=== PATIENT | female | born 2005 | race Caucasian/White ===

== ENCOUNTER 2025-09-05 13:12 | Inpatient (IN) | payer BC, SELFPAY ==
--- OUTSIDE RECORDS SUMMARY | 2025-09-01 11:41 | XMS_ITS | Encounter Summary ---
Author Organization Address [id number] [place] [id number] Care Team Providers Care Wastewater Engineer Name Role Phone Kev Canales MD Primary Care Provider [phone] Reason for Visit * Reason Comments Suicidal Suicide Attempt * Auth/Cert (Routine) Specialty Diagnoses / Procedures Referred By Naty zimmerman Referred To Contact Diagnoses Suicidal ideation Ingestion of toxic substance Procedures . Oliva Puri MD [address] [place] [phone] Phone: tel: fax: [facility] ICU [address] [place] [phone] Phone: tel: Referral ID Status Reason Start Date Expiration Date Visits Re quested Visits Authorized [id number] 1 1 Encounter Details Date Type Department Care Team (Latest Contact Info) Description 09/01/2025 12:41 PM EDT - 09/05/2025 12:55 PM EST Hospital Encounter [facility] Medical Surgical Unit [address] [place] [phone] Jose Brizuela MD [address] [place] [phone] Oliva Puri MD [address] [place] [phone] Cindy Marie MD [address] [place] [phone] Addie Henderson MD [address] [place] [phone] Ingestion of toxic substance (Primary Dx); Suicidal ideation Discharge Disposition: Psychiatric Hospital Social History Tobacco Use Types Packs/Day Years Used Date Smoking Tobacco: Never Smokeless Tobacco: Never Tobacco Cessation:Counseling Given: Not Answered Housing Instability Answer Date Recorde d Are you worried that in the next 2 months you may not have stable housing? No 09/01/2025 Food Access & Nutrition Answer Date Rec orded Do you have access to a vari ety of food including fruits and vegetables? Yes 09/01/2025 Access to Healthcare Answer Date Record ed Within the last 3 months, ho w many times did you visit the emergency department for your medical care? 1 09/01/2025 Financial Risk Answer Date Recorded How hard is it for you to pa y for the very basics like food, housing, medical care, and air conditioning / heating? Not very hard 09/01/2025 Transportation Answer Date Recorded Has the lack of transportati on kept you from meetings, work, or from getting things needed for daily living? No Has the lack of transportati on kept you from medical appointments or from getting medications? No 09/01/2025 Social Isolation Answer Date Recorded How often do you feel lonely or isolated from th ose around you? Often 09/01/2025 Food Risk Answer Date Recorded Within the past 12 months we worried whether our food would run out before we got money to buy more. Never true 09/01/2025 Within the past 12 months th e food we bought just didn't last and we didn't have money to get more. Never true 09/01/2025 Dependent Care Answer Date Recorded Do you need help finding or paying for care for your loved ones. For example, child specialist or elderly care for an older adult? No 09/01/2025 Education Answer Date Recorded Do you think completing more education or training, like finishing a GED, going to college, or learning a trade, would be helpful for you? No 09/01/2025 Employment and Income Answer Date Recor ded During the last four weeks, have you been actively looking for work? No 09/01/2025 Living Situation Answer Date Recorded What is your living situation? Unrecognized valu e 09/01/2025 Interpersonal Safety Answer Date Record ed Physical Abuse Unrecognized value 09/01/2025 Verbal Abuse Unrecognized value 09/01/2025 Comments Unknown Sex and Gender Information Value Date Recorded Sex Assigned at Not on file Legal Sex Female 12:35 PM EDT Gender Identity Not on file Sexual Orientation Not on file documented as of this encounter Last Filed Vital Signs Vital Sign Reading Time Taken Comments Blood Pressure 110/79 09/05/2025 11:54 AM EST Pulse 101 09/05/2025 11:54 AM EST Temperature 37.1 C (98.8 F) 09/05/2025 11:54 AM EST Respiratory Rate 18 09/05/2025 11:54 AM EST Oxygen Saturation 98% 09/05/2025 11:54 AM EST Inhaled Oxygen Concentration - - Weight 69.4 kg (153 lb) 09/01/2025 12:39 PM EDT Height 157.5 cm (5' 2 ) 09/01/2025 12:39 PM EDT Body Mass Index 27.98 09/01/2025 12:39 PM EDT documented in this encounter Functional Status * Calculated C-SSRS Risk Score (Lifetime/Recent) Answer Date of Assessment Author High Risk 09/01/2025 2:01 PM EDT Cortes RN * [place] Suicide Severity Rating Scale (Screener/Recent Self-Report) Question Answer Date of Assessment Author 1. Wish to be (Past 1 Month) No 025 2:01 PM EDT Xiao Madera RN 2. Non-Specific Active Suici pako Thoughts (Past 1 Month) Yes 09/01/2025 2:01 PM EDT Xiao Madera RN 3. Active Suicidal Ideation with any Methods (Not Plan) Without Intent to Act (Past 1 Month) Yes 09/01/2025 2:01 PM EDT Xiao Madera RN 4. Active Suicidal Ideation with Some Intent to Act, Without Specific Plan (Past 1 Month) Yes 09/01/2025 2:01 PM EDT Xiao Madera RN 5. Active Suicidal Ideation with Specific Plan and Intent (Past 1 Month) Yes 09/01/2025 2:01 PM EDT Xiao Madera RN 6. Suicidal Behavior (Lifetime) Yes 2:01 PM EDT Xiao Madera RN 6. Suicidal Behavior (3 Months) Yes 2:01 PM EDT Xiao Madera RN documented as of this encounter Discharge Summaries * Addie Henderson MD - 09/05/2025 11:26 AM EST Images from the original note were not included. [facility] DISCHARGE SUMMARY Patient Information Kimi Sarah : 2005 [19 y.o.] Admitting Provider Oliva Puri MD Discharge Provider Addie Henderson MD, Addie Henderson MD Primary Care Physician Kev Canales MD Admission Date 09/01/2025 Discharge Date 09/05/2025 Summary of Hospital Problems Chief Complaint Patient presents with Suicidal Suicide Attempt Primary Discharge Diagnosis: Mood disorder (CMS/[facility] V24) Suicide attempt Polysubstance overdose Hypomagnesemia Discharge Destination: Psych hospital Code Status at Discharge: Full Code - Default Inpatient Consultants: Psychiatry ICU Procedures Performed Discharge Medications Medication List TAKE these medications FLUoxetine 20 mg capsule Commonly known as: PROzac Take 1 capsule (20 mg total) by mouth 1 (one) time each day. Start taking on: September 06, 2025 Hospital Course Summary History Of Present Illness (include Chief Complaint) ED provider HPI ( Dr Goebel. HARRIS)Kimi Sarah is a 19 y.o. female presenting with toxic ingestion suicide attempt. Approximately 1 hour prior to ED arrival and a suicidal gesture the patient tooka total of clonidine 0.1 mg x 8, hydroxyzine 25 mg x 8, and Lexapro 5 mg times unknown number. She said that the gesture was impulsive and that she immediately grabbed it so called her mom. Mom called 911 and accompanies the patient to the ED. Upon arrival in the ED she states that she is very sleepy and barely can keep her eyes open. Patient hypotensive in ED requiring vasopressor support with stable airway. CCM is called to assess patient for ICU admission and CCM management. HCG negative. Afebrile. VS acceptable on norepinephrine 0.05 mcg/kg/min Qtc 484, 480 Hospital course 89-year-old female with past medical history significant for depression and anxiety admitted to theintensive care unit on 09/01/2025 for polysubstance overdose including clonidine hydroxyzine and Lexapro. Initially when she came in she was lethargic and hypotensive. She was given multiple fluid boluses and was started on pressors. She was seen promptly by psychiatry the recommendation was to have active suicidality which will require that she be hospitalized. Patient was taken off pressors on 09/03/2025. She remained stable after that. Her MAP has been greater than 70. She is awake and alert and perfusing well. She was seen by psychiatry and discontinued her clonidine and Lexapro and started on Prozac 20 mg daily. She did have some hypomagnesemia on admission which was repleted. She is medically stable. She will be discharged to the [facility]. Physical Exam at time of Discharge BP 109/71 (BP Location: Left arm, Patient Position: Lying) Pulse 86 Temp 36.6 ??C (97.8 ??F) (Temporal) Resp 16 Ht 1.575 m (62 ) Wt 69.4 kg (153 lb) BMI 27.98 kg/m?? Physical Exam Gen: Alert , oriented Neck Supple Chest : CTA CVS S1 S2 RRR Abdomen Soft NT ND Extremities PP+ Neuro Intact Labs/Imaging XR Chest 1 View Result Date: 09/02/2025 EXAMINATION: CHEST CLINICAL INFORMATION: Evaluate tube and catheters. PICC line placement COMPARISON: None. TECHNIQUE: Portable frontal sitting view of the chest FINDINGS: Devices overlie the patient. There is slight rotation to the right. The right PICC tip projects in the expected region of the right atrium. No mediastinal widening. The cardiac size, karen, vasculature, lungs and visualized pleural margins are within normal limits. No suspicious focal bony lesion. Right PICC tip projects in expected region of right atrium. No pneumothorax. -------- FINAL REPORT -------- Dictated By: Claude Gudino Dictated Date: 09/02/2025 07:09 ET Assigned Physician: Claude Gudino Reviewed and Electronically Signed By: Claude Gudino Signed Date: 09/02/2025 07:10 ET W orkstation ID: [id number] Transcribed By: Self Edit Transcribed Date: 09/02/2025 07:09 ET No results found for: INR , PROTIME Lab Results Component Value Date NA 137 09/04/2025 K 3.9 09/04/2025 CL 107 09/04/2025 CO2 26 09/04/2025 GLUCOSE 115 (H) 09/04/2025 BUN 5 09/04/2025 CREATININE 0.54 09/04/2025 CALCIUM 9.3 09/04/2025 PROT 6.7 09/03/2025 ALBUMIN 3.7 09/03/2025 BILITOT 0.6 09/03/2025 AST 9 (L) 09/03/2025 ALT 25 09/03/2025 PHOS 3.9 09/04/2025 MG 1.8 (L) 09/04/2025 ALKPHOS 78 09/03/2025 EGFR 136 09/04/2025 Lab Results Component Value Date WBC 10.9 (H) 09/04/2025 HGB 12.1 09/04/2025 HCT 36.4 09/04/2025 MCV 93.3 09/04/2025 PLT 249 09/04/2025 No results found for this or any previous visit (from the past week). * Cannot find OR log * Imaging: XR Chest 1 View Narrative: EXAMINATION: CHEST CLINICAL INFORMATION: Evaluate tube and catheters. PICC line placement COMPARISON: None. TECHNIQUE: Portable frontal sitting view of the chest FINDINGS: Devices overlie the patient. There is slight rotation to the right. The right PICC tip projects in the expected region of the right atrium. No mediastinal widening. The cardiac size, karen, vasculature, lungs and visualized pleural margins are within normal limits. No suspicious focal bony lesion. Impression: Right PICC tip projects in expected region of right atrium. No pneumothorax. -------- FINAL REPORT -------- Dictated By: Claude Gudino Dictated Date: 09/02/2025 07:09 ET Assigned Physician: Claude Gudino Reviewed and Electronically Signed By: Claude Gudino Signed Date: 09/02/2025 07:10 ET Workstation ID: [id number] Transcribed By: Self Edit Transcribed Date: 09/02/2025 07:09 ET Follow-Up Instructions and Recommendations No follow-up provider specified. More than 30 minutes spent on the discharge summary. documented in this encounter Medications at Time of Discharge FLUoxetine (PROzac) 20 mg capsule Take 1 capsule (20 mg total) by mouth 1 (one) time each day. 09/06/2025 09/06/2026 documented as of this encounter Ordered Prescriptions Prescription Sig Dispense Quantity Refills Last Filled Start Date End Date FLUoxetine (PROzac) 20 mg capsule Take 1 capsule (20 mg total) by mouth 1 (one) time each day. 09/06/2025 documented in this encounter Discharge Disposition Disposition Code Departure Means Destination Comment [facility] documented in this encounter Progress Notes * Soraya Ochoa RN - 09/05/2025 12:28 PM EST This RN gave nurse to nurse report to [facility] from [facility] at 12:25pm. IV removed from patient. Belongings taken home with patients mother. * Diana Escamilla LCSW - 09/05/2025 10:48 AM EST Patient has been accepted to [facility], by Dr. Jose Garcia, they are requesting and ETA of 1pm. There was a section 12 already placed in her chart for transport. * Lindsey Abbott MD - 09/05/2025 8:47 AM EST Connected to patient's room via I-pad with help from technician anatomic pathology; assistance much appreciated. Patient consented verbally to visit via Telehealth video conferencing modality. Patient educated asto likely differences between Telehealth care and face to face care. Patient informed of the risks and benefits of using Telehealth services and procedures and likely risks and benefits of using alternatives to Telehealth services. Patient informed of the right to refuse Telehealth services at any time without jeopardizing his/her right to future care, services or benefits. Patient was informed that he/she is being seen solely by Lindsey Abbott MD today via secure audio/visual connection in alocked virtual exam room. Persons present on patient's end: Patient, sitter Persons present on provider's end in [place]: Lindsey Abbott MD CHART REVIEWED, PATIENT INTERVIEWED. CHIEF COMPLAINT: Suicide attempt Time spent on encounter: 10 min (5 min face to face, 5 min in chart review and documentation) Billing: JARAD HISTORY OF PRESENT ILLNESS Kimi Sarah is a 19 y.o. female with psychiatric history significant for depression and no known medical history who was admitted following a suicide attempt. Psychiatry was consulted for safety evaluation. The patient states that she is doing well and denies any acute complaints. She feels that her mood is stable. She is tolerating the start of the Prozac without any difficulties, and she desires to continue to take it. She continues to regret her suicide attempt. The patient denies any suicidal ideations, plan, or intent. REVIEW OF SYSTEMS CONSTITUTIONAL: The patient denies fevers, chills, sweats and body ache. HEENT: Denies BECERRA, blurry vision, eye pain, tinnitus, vertigo, gingival bleeding, sore throat, neck or thyroid masses. RESPIRATORY: Denies cough, sputum, hemoptysis. CARDIAC: Denies chest pain, pressure, palpitations, irregular heartbeats. Denies lower extremity edema. GASTROINTESTINAL: Denies abdominal pain, changes in bowel habits or any bleeding on toilet paper. GENITOURINARY: Denies dysuria, hematuria, nocturia or frequency. NEUROLOGIC: Denies headaches, dizziness, syncope. MUSCULOSKELETAL: Negative for arthritis. Denies muscle weakness. No limitation in range of motion. VASCULAR: Denies claudication and cramping. ENDOCRINOLOGY: Denies heat or cold intolerance. HEMATOLOGY: Denies easy bleeding or blood transfusion. DERMATOLOGY: Denies changes in moles or pigmentation changes. Psychiatric ROS: Depression: See HPI. Giovanna: The patient denies elevated/expansive mood, decreased need for sleep, grandiosity, pressuredspeech, flight of ideas, distractibility, increase in goal directed activity, and hypersexuality. Psychosis: The patient denies audio or visual hallucinations, delusions, thought broadcasting, thought insertion, delusions of reference, catatonia, or disorganized speech or behavior. Anxiety: The patient denies any excessive worry, restlessness, fatigue, poor concentration, irritability, muscle tension, or anxiety-related sleep changes. Panic: The patient denies any recent panic episodes. PTSD: The patient does not endorse any current s/s related to PTSD. OCD: The patient denies intrusive thoughts, repetitive behaviors, counting, checking, washing, symmetry, or grouping and ordering that take up more than 1 hour of the day. Eating Disorder: The patient denies feeling overweight, excessive dieting or exercise to lose weight, overuse of laxatives, binging/purging behaviors, and amenorrhea. MEDICAL HISTORY Non-psychiatric medical history: Medical History[1] Current medications: MEDSSCHEDULED[2] ALLERGIES: Current Allergies[3] MSE: Appearance: AOx4. Appears stated age, well groomed. Pleasant and cooperative. Adequate eye contact.No psychomotor agitation or retardation. No evidence of EPS. Muscle tone/station: WNL. Orientation: To person, place, time, and situation. Attention and Concentration: No deficits in attention and concentration. Speech: Normal rate, rhythm, volume, and tone. Mood: Okay. Affect: Dysphoric with restricted range, mood congruent. No lability noted. Thought Process: Coherent, linear, logical, and goal-directed. No FOI or GAYATHRI. No thought blocking. Thought Content: Denies suicidal/homicidal ideation. Denies auditory/visual hallucinations. No delusions. No paranoia. Perception/associations: Denies hallucinations, somatic complaints, or tactile disturbances Suicidal Ideations: Pt denies SI, intent, or plan. Low acute risk. Currently is future oriented, motivated for treatment, and compliant with medications. Homicidal Ideations: Pt denies HI, intent, or plan. Low acute risk. No history of violence. No access to firearms. Behavior: No abnormal behavior during interview. Fund of Knowledge: Appropriate for age and level of education Intellect/Memory: Estimated as average based on interview. Immediate, recent, and remote memory is grossly intact. Language: No deficits Judgment/Insight: fair at present. Musculoskeletal Exam: Movement: [x]normal []abnormal [-]dyskinesias [-]tremors [-]tics Station: [x]upright []hyperflexed/stooped []hyperextended Muscle strength [x]appears normal [-]appears abnormal Muscle tone: [x]normal [-]muscle rigidity LABS: Lab Results Component Value Date WBC 10.9 (H) 09/04/2025 HGB 12.1 09/04/2025 HCT 36.4 09/04/2025 PLT 249 09/04/2025 ALT 25 09/03/2025 AST 9 (L) 09/03/2025 NA 137 09/04/2025 K 3.9 09/04/2025 CL 107 09/04/2025 CREATININE 0.54 09/04/2025 BUN 5 09/04/2025 CO2 26 09/04/2025 VITALS: BP: 109/71 (09/05 748) Heart Rate: 86 (09/05 748) Temp: 36.6 ??C (97.8 ??F) (09/05 748) Temp Source: Temporal (09/05 748) SpO2: 100 % (09/05 748) ASSESSMENT: Kimi Sarah is a 19 y.o. female with psychiatric history significant for depression and no known medical history who was admitted following a suicide attempt. Psychiatry was consulted for safety evaluation. DSM-5 DIAGNOSIS: Suicide attempt MDD, recurrent, severe, without psychotic features Admitted following a suicide attempt. TREATMENT PLAN: Pt has verbalized understanding and given consent/agreement with medications and plan offered. LEVEL OF CARE: Continue current level of treatment. RECOMMENDATIONS: Continue Prozac 20 mg PO daily for depression. Discussed/Reviewed mechanism of action of SSRIs, expected benefits and time to response, common SEs including GI, BECERRA, drowsiness or activation, sexual SEs, and more rare but serious adverse effects including agitation, giovanna, suicidal thoughts and behaviors. The patient meets criteria for Section 12 and cannot leave the hospital AMA. Continue sitter for safety. Per chart review, the patient has now been medically cleared. The disaster recovery specialist team is aware and will evaluate the patient for possible transfer to a psychiatric unit. Medication Education: Risks, benefits, alternatives, and potential side effects were discussed withthe patient. Patient voiced understanding and agreed with medication regimen described above. LABS: Reviewed and discussed most recent labs results. MEDICATION CONTRACT: Patient agreed to take medication only as prescribed and acknowledges that services may be terminated if prescription abuse is observed. SAFETY PLAN: Patient is to alert team if symptoms worsen. Team will monitor for development of suicidal ideations or an acute medication reaction. - Call 911 or present to nearest Emergency Room in case of crisis / suicidal thoughts upon discharge. EDUCATION/CONSENT: Discussed and explained all diagnoses including differential diagnosis and treatment options. Discussed risks, benefits, potential side effects, contraindications, potential drug-drug interactions, alternatives to current medications and medication allergies as noted above. Discussed continuing to monitor for side effects and treatment efficacy prospectively and delineated patient's involvement and responsibility in monitoring for side effects and efficacy. Jorge jamil expressed understanding of these recommendations. BARRIERS TO LEARNING: Patient demonstrates a readiness to learn. Patient verbalizes understanding and agrees to plan. No barriers to communication noted. MEDICATION RECONCILIATION: Medications were reviewed and reconciled with the patient. PREVENTATIVE RECOMMENDATIONS: Preventative Health Education Counseling: discussed proper diet/nutrition, exercise, and sleep hygiene. The patient was encouraged to avoid nicotine, alcohol and illicitdrugs at all times. The patient was made aware that records from the u/s can be sent to his/her PCP at any time that he/she requests. [1] History reviewed. No pertinent past medical history. [2] enoxaparin, 40 mg, subcutaneous, q24h LISETTE FLUoxetine, 20 mg, oral, Daily magnesium oxide, 200 mg, oral, Daily midodrine, 5 mg, oral, TID AC pantoprazole, 40 mg, intravenous, q24h [3] Allergies Allergen Reactions Lactose Pt. Stated she is lactose intolerance * Leda Tomlinson RN - 09/04/2025 2:20 PM EST Patient come from ICU. Patient changed out of tie gown and pants into appropriate attire. Plastic trash bags traded out for paper bags. Asked parent to remove belonging from room and bring them home.Phone removed from room. * TREVOR Benites - 09/04/2025 9:50 AM EST Per record, patient seen by psychiatry and awaiting inpatient psychiatric section 12 transfer. Patient awaits downgraded from ICU. Social Work to follow as needed. * Cindy Marie MD - 09/04/2025 9:26 AM EST Follow up time (mins): 40 Critical care time (mins) : Please see the admission H&P for details regarding the patient's past medical history and initial presentation. This is a 19-year-old female who took an intentional polysubstance overdose with clonidine hydroxyzine and Lexapro. In the emergency department she was sleepy but protecting her airway. She was hypotensive and had a slightly elevated QT interval and was placed on Levophed for support. Her blood pressure trended toward low and she received fluid boluses and midodrine. But continuedwith relatively low blood pressures. She was seen promptly by psychiatry. Their recommendation is the patient continues to have active suicidality which will require that she be hospitalized. She has a one-to-one sitter which cannot bediscontinued. The patient herself has been cooperative and has been off pressors for 24 hours. She is on midodrine but has not not had really good response to it. Her MAP is greater than 70 she is awake and alert and perfusing and given her young age I think this blood pressure is appropriate Today she is without any specific medical complaints and is medically cleared to be transferred to a psychiatric facility. She was seen in follow-up today by psych and they have recommended she beginProzac 20 mg daily which I will order Physical Exam: Temp is 98 pulse is 83 respirate is 17 blood pressure is 99/65 sats 99% on room air Lungs are clear Cardiac's S1-S2 Abdomen is soft Extremities have no edema The patient is awake alert cooperative has had all her questions asked and answered. Data: Reviewed nontoxic Lovenox magnesium midodrine Protonix Medication: Problem List: Suicidal ideation Hypotension likely not pathologic On one-to-one observation Plan: 1 medically clear for transfer to the floor Ambulate One-to-one sitter Begin Prozac per psychiatry Await psychiatric bed availability Continue regular diet not on subcu heparin patient is normally mobile regular activity Continue support Patient's parents are involved in her care. The patient is aware that she is awaiting transfer to an inpatient bed 2 3 4 5 6 Recent Results (from the past 24 hours) Basic metabolic panel Collection Time: 09/03/25 12:36 PM Result Value Ref Range Sodium 139 133 - 145 mmol/L Potassium 4.0 3.5 - 5.5 mmol/L Chloride 108 96 - 110 mmol/L CO2 27 21 - 32 mmol/L Anion Gap 4 3 - 11 Glucose 100 70 - 100 mg/dL BUN 8 5 - 25 mg/dL Creatinine 0.62 0.50 - 1.10 mg/dL eGFR 132 >=60 mL/min/1.73m2 BUN/Creatinine Ratio 12.9 Calcium 9.4 8.5 - 10.5 mg/dL Magnesium Collection Time: 09/03/25 12:36 PM Result Value Ref Range Magnesium 2.1 1.9 - 2.6 mg/dL Phosphorus Collection Time: 09/03/25 12:36 PM Result Value Ref Range Phosphorus 3.1 2.5 - 4.5 mg/dL Lavender tube Collection Time: 09/03/25 12:36 PM Result Value Ref Range Extra Tube Hold for add-ons. POCT Glucose, blood Collection Time: 09/03/25 4:38 PM Result Value Ref Range Glucose POCT 95 70 - 100 mg/dL POCT Glucose, blood Collection Time: 09/03/25 11:06 PM Result Value Ref Range Glucose POCT 131 (H) 70 - 100 mg/dL Calcium, ionized Collection Time: 09/04/25 4:09 AM Result Value Ref Range Calcium Ionized 4.90 4.50 - 5.30 mg/dL Magnesium Collection Time: 09/04/25 4:09 AM Result Value Ref Range Magnesium 1.8 (L) 1.9 - 2.6 mg/dL Phosphorus Collection Time: 09/04/25 4:09 AM Result Value Ref Range Phosphorus 3.9 2.5 - 4.5 mg/dL Basic metabolic panel Collection Time: 09/04/25 4:09 AM Result Value Ref Range Sodium 137 133 - 145 mmol/L Potassium 3.9 3.5 - 5.5 mmol/L Chloride 107 96 - 110 mmol/L CO2 26 21 - 32 mmol/L Anion Gap 4 3 - 11 Glucose 115 (H) 70 - 100 mg/dL BUN 5 5 - 25 mg/dL Creatinine 0.54 0.50 - 1.10 mg/dL eGFR 136 >=60 mL/min/1.73m2 BUN/Creatinine Ratio 9.3 Calcium 9.3 8.5 - 10.5 mg/dL CBC auto differential Collection Time: 09/04/25 4:09 AM Result Value Ref Range WBC 10.9 (H) 4.8 - 10.8 K/mcL RBC 3.90 3.80 - 4.80 M/mcL Hemoglobin 12.1 11.5 - 16.0 g/dL Hematocrit 36.4 35.0 - 47.0 % MCV 93.3 79.0 - 98.0 FL MCH 31.0 27.0 - 32.0 pcg MCHC 33.2 32.0 - 37.0 g/dL RDW 12.0 11.0 - 15.0 % Platelets 249 130 - 400 K/mcL MPV 9.1 7.0 - 11.0 FL NRBC 0.0 <1.0 % NRBC Absolute 0.00 <0.10 K/mcL Neutrophils Relative 57.5 % Lymphocytes Relative 26.9 % Monocytes Relative 11.1 % Eosinophils Relative 3.5 % Basophils Relative 0.6 % Immature Granulocytes Relative 0.4 % Neutrophils Absolute 6.29 1.50 - 7.00 K/mcL Lymphocytes Absolute 2.94 1.00 - 5.00 K/mcL Monocytes Absolute 1.21 (H) 0.20 - 1.00 K/mcL Eosinophils Absolute 0.38 0.00 - 0.50 K/mcL Basophils Absolute 0.07 0.00 - 0.20 K/mcL Immature Granulocytes Absolute 0.04 (H) 0.00 - 0.03 K/mcL XR Chest 1 View Narrative: EXAMINATION: CHEST CLINICAL INFORMATION: Evaluate tube and catheters. PICC line placement COMPARISON: None. TECHNIQUE: Portable frontal sitting view of the chest FINDINGS: Devices overlie the patient. There is slight rotation to the right. The right PICC tip projects in the expected region of the right atrium. No mediastinal widening. The cardiac size, karen, vasculature, lungs and visualized pleural margins are within normal limits. No suspicious focal bony lesion. Impression: Right PICC tip projects in expected region of right atrium. No pneumothorax. -------- FINAL REPORT -------- Dictated By: Claude Gudino Dictated Date: 09/02/2025 07:09 ET Assigned Physician: Claude Gudino Reviewed and Electronically Signed By: Claude Gudino Signed Date: 09/02/2025 07:10 ET Workstation ID: [id number] Transcribed By: Self Edit Transcribed Date: 09/02/2025 07:09 ET Current Medications[1] Cindy Marie MD [1] Current Facility-Administered Medications Medication Dose Route Frequency Provider Last Rate Last Admin alteplase (CATHFLO ACTIVASE) injection 1 mg 1 mg intra-catheter q2h PRN Oliva Puri MD 1 mg at111/03/24 1602 enoxaparin (LOVENOX) injection 40 mg 40 mg subcutaneous q24h LISETTE Oliva Puri MD 40 mg at 09/04/25 0912 LORazepam (ATIVAN) tablet 0.5 mg 0.5 mg oral q6h PRN Oliva Puri MD magnesium oxide (MAG-OX) tablet 200 mg 200 mg oral Daily JORGE Lombardi 200 mg at 09/04/25 0911 midodrine (PROAMATINE) tablet 10 mg 10 mg oral TID AC Oliva Puri MD 10 mg at 09/04/25 0755 pantoprazole (PROTONIX) injection 40 mg 40 mg intravenous q24h Oliva Puri MD 40 mg at 09/01/25 1746 * Lindsey Abbott MD - 09/04/2025 9:13 AM EST Connected to patient's room via I-pad with help from technician anatomic pathology; assistance much appreciated. Patient consented verbally to visit via Telehealth video conferencing modality. Patient educated asto likely differences between Telehealth care and face to face care. Patient informed of the risks and benefits of using Telehealth services and procedures and likely risks and benefits of using alternatives to Telehealth services. Patient informed of the right to refuse Telehealth services at any time without jeopardizing his/her right to future care, services or benefits. Patient was informed that he/she is being seen solely by Lindsey Abbott MD today via secure audio/visual connection in alocked virtual exam room. Persons present on patient's end: Patient, patient's father, sitter Persons present on provider's end in [place]: Lindsey Abbott MD CHART REVIEWED, PATIENT INTERVIEWED. CHIEF COMPLAINT: Suicide attempt Time spent on encounter: 12 min (7 min face to face and 5 min in chart review and documentation) Billing: [facility] HISTORY OF PRESENT ILLNESS Kimi Sarah is a 19 y.o. female with psychiatric history significant for depression and no known medical history who was admitted following a suicide attempt. Psychiatry was consulted for safety evaluation. The patient states that she is feeling good at present. She reports that her suicideattempt was impulsive, and she regrets it. She has had some time to reflect while she is in the hospital, and she can pinpoint some of the things that drove her to that point. She had a big fight with her group of friends, and she was in a lot of mental pain because of that. She made the suicide attempt and then a few minutes later she regretted it and called her mother for help. She notes that she had a similar suicide attempt 4 years ago. She denies any current suicidal ideations, plan, or intent. She feels that her mood is relatively stable. REVIEW OF SYSTEMS CONSTITUTIONAL: The patient denies fevers, chills, sweats and body ache. HEENT: Denies BECERRA, blurry vision, eye pain, tinnitus, vertigo, gingival bleeding, sore throat, neck or thyroid masses. RESPIRATORY: Denies cough, sputum, hemoptysis. CARDIAC: Denies chest pain, pressure, palpitations, irregular heartbeats. Denies lower extremity edema. GASTROINTESTINAL: Denies abdominal pain, changes in bowel habits or any bleeding on toilet paper. GENITOURINARY: Denies dysuria, hematuria, nocturia or frequency. NEUROLOGIC: Denies headaches, dizziness, syncope. MUSCULOSKELETAL: Negative for arthritis. Denies muscle weakness. No limitation in range of motion. VASCULAR: Denies claudication and cramping. ENDOCRINOLOGY: Denies heat or cold intolerance. HEMATOLOGY: Denies easy bleeding or blood transfusion. DERMATOLOGY: Denies changes in moles or pigmentation changes. Psychiatric ROS: Depression: See HPI. Giovanna: The patient denies elevated/expansive mood, decreased need for sleep, grandiosity, pressuredspeech, flight of ideas, distractibility, increase in goal directed activity, and hypersexuality. Psychosis: The patient denies audio or visual hallucinations, delusions, thought broadcasting, thought insertion, delusions of reference, catatonia, or disorganized speech or behavior. Anxiety: The patient denies any excessive worry, restlessness, fatigue, poor concentration, irritability, muscle tension, or anxiety-related sleep changes. Panic: The patient denies any recent panic episodes. PTSD: The patient does not endorse any current s/s related to PTSD. OCD: The patient denies intrusive thoughts, repetitive behaviors, counting, checking, washing, symmetry, or grouping and ordering that take up more than 1 hour of the day. Eating Disorder: The patient denies feeling overweight, excessive dieting or exercise to lose weight, overuse of laxatives, binging/purging behaviors, and amenorrhea. MEDICAL HISTORY Non-psychiatric medical history: Medical History[1] Current medications: MEDSSCHEDULED[2] ALLERGIES: Current Allergies[3] MSE: Appearance: AOx4. Appears stated age, well groomed. Pleasant and cooperative. Adequate eye contact.No psychomotor agitation or retardation. No evidence of EPS. Muscle tone/station: WNL. Orientation: To person, place, time, and situation. Attention and Concentration: No deficits in attention and concentration. Speech: Normal rate, rhythm, volume, and tone. Mood: I'm okay. Affect: Dyphoric with restricted range, mood congruent. No lability noted. Thought Process: Coherent, linear, logical, and goal-directed. No FOI or GAYATHRI. No thought blocking. Thought Content: Denies suicidal/homicidal ideation. Denies auditory/visual hallucinations. No delusions. No paranoia. Perception/associations: Denies hallucinations, somatic complaints, or tactile disturbances Suicidal Ideations: Pt denies SI, intent, or plan. Low acute risk. Currently is future oriented, motivated for treatment, and compliant with medications. Homicidal Ideations: Pt denies HI, intent, or plan. Low acute risk. No history of violence. No access to firearms. Behavior: No abnormal behavior during interview. Fund of Knowledge: Appropriate for age and level of education Intellect/Memory: Estimated as average based on interview. Immediate, recent, and remote memory is grossly intact. Language: No deficits Judgment/Insight: fair at present. Musculoskeletal Exam: Movement: [x]normal []abnormal [-]dyskinesias [-]tremors [-]tics Station: [x]upright []hyperflexed/stooped []hyperextended Muscle strength [x]appears normal [-]appears abnormal Muscle tone: [x]normal [-]muscle rigidity LABS: Lab Results Component Value Date WBC 10.9 (H) 09/04/2025 HGB 12.1 09/04/2025 HCT 36.4 09/04/2025 PLT 249 09/04/2025 ALT 25 09/03/2025 AST 9 (L) 09/03/2025 NA 137 09/04/2025 K 3.9 09/04/2025 CL 107 09/04/2025 CREATININE 0.54 09/04/2025 BUN 5 09/04/2025 CO2 26 09/04/2025 VITALS: BP: 99/65 (09/04 800) Heart Rate: 83 (09/04 800) Temp: 35.5 ??C (95.9 ??F) (09/04 800) Temp Source: Oral (09/04 400) SpO2: 99 % (09/04 800) ASSESSMENT: Kimi Sarah is a 19 y.o. female with psychiatric history significant for depression and no known medical history who was admitted following a suicide attempt. Psychiatry was consulted for safety evaluation. DSM-5 DIAGNOSIS: Suicide attempt MDD, recurrent, severe, without psychotic features Admitted following a suicide attempt. TREATMENT PLAN: Pt has verbalized understanding and given consent/agreement with medications and plan offered. LEVEL OF CARE: Continue current level of treatment. RECOMMENDATIONS: Initiate Prozac 20 mg PO daily for depression. Discussed/Reviewed mechanism of action of SSRIs, expected benefits and time to response, common SEs including GI, BECERRA, drowsiness or activation, sexual SEs, and more rare but serious adverse effects including agitation, giovanna, suicidal thoughts and behaviors. The patient meets criteria for Section 12 and cannot leave the hospital AMA. Continue sitter for safety. Please alert the u/s once the patient has been medically cleared. At that time, will ask the disaster recovery specialist to evaluate the patient for possible admission to a psychiatric unit. Medication Education: Risks, benefits, alternatives, and potential side effects were discussed withthe patient. Patient voiced understanding and agreed with medication regimen described above. LABS: Reviewed and discussed most recent labs results. MEDICATION CONTRACT: Patient agreed to take medication only as prescribed and acknowledges that services may be terminated if prescription abuse is observed. SAFETY PLAN: Patient is to alert team if symptoms worsen. Team will monitor for development of suicidal ideations or an acute medication reaction. - Call 911 or present to nearest Emergency Room in case of crisis / suicidal thoughts upon discharge. EDUCATION/CONSENT: Discussed and explained all diagnoses including differential diagnosis and treatment options. Discussed risks, benefits, potential side effects, contraindications, potential drug-drug interactions, alternatives to current medications and medication allergies as noted above. Discussed continuing to monitor for side effects and treatment efficacy prospectively and delineated patient's involvement and responsibility in monitoring for side effects and efficacy. Jorge jamil expressed understanding of these recommendations. BARRIERS TO LEARNING: Patient demonstrates a readiness to learn. Patient verbalizes understanding and agrees to plan. No barriers to communication noted. MEDICATION RECONCILIATION: Medications were reviewed and reconciled with the patient. PREVENTATIVE RECOMMENDATIONS: Preventative Health Education Counseling: discussed proper diet/nutrition, exercise, and sleep hygiene. The patient was encouraged to avoid nicotine, alcohol and illicitdrugs at all times. The patient was made aware that records from the u/s can be sent to his/her PCP at any time that he/she requests. [1] History reviewed. No pertinent past medical history. [2] enoxaparin, 40 mg, subcutaneous, q24h LISETTE magnesium oxide, 200 mg, oral, Daily midodrine, 10 mg, oral, TID AC pantoprazole, 40 mg, intravenous, q24h [3] Allergies Allergen Reactions Lactose Pt. Stated she is lactose intolerance * Mali Harris RN - 09/04/2025 5:57 AM EST Problem: Falls: Fall Risk (Adult IP BH) Goal: (Goal) Patient will experience maximum safety and reduce risk for falls. Outcome: Adequate for Discharge Goal: Patient will not fall or injure themselves during hospitalization. Outcome: Adequate for Discharge Problem: Self Concept: Suicide Risk Goal: Will verbalize feelings Outcome: Progressing Goal: Will verbalize positive feelings about self Outcome: Progressing Problem: Cognitive: Suicide Risk Goal: Ability to make informed decisions regarding treatment will improve Outcome: Progressing Goal: Identification of resources available to assist in meeting health care needs will improve Outcome: Progressing Goal: Understanding of proper administration and use of medicines will improve Outcome: Progressing Problem: Patient Specific Problem: Suicide Risk Goal: Patient Specific Outcome Outcome: Progressing Goals: Identify possible barriers to meeting goals/advancing plan of care: awaiting psych eval Stability of the patient: Moderately Stable - Low risk of patient condition declining or worsening End of Shift Summary: Patient washed up, ambulates within room, expresses needs, demeoner hopes to be home in time to celebrate birthday. SI precautions in place, patient sitter at bedside, norepinephrine off all night, BP stable goal MAP of 65, patient having difficulty sleeping, able to fall asleep at 4 am * Lesvia Cobos RN - 09/03/2025 5:05 PM EST Post Cathflo administration via double lumen PICC line with good effect. Positive blood return/smooth flush. * TREVOR Garsia - 09/03/2025 12:22 PM EST Systems Designer- CM Progress Note Patient continues to require acute level hospital care. ENID: tbd Barriers: poison control following, psych consult, IVF, IV PPI, tele monitoring, Sect 10/02:1 Disposition: Inpatient psychiatric care v. Home self Case management social services director will remain available to assess, support, provide advocacy and assist with discharge planning as appropriate. * Oliva Puri MD - 09/02/2025 12:45 PM EDT CCM PROGRESS NOTE Code Status: Full Code - Default Length of Stay: 2 ICU Day: 2 SUBJECTIVE ICU COURSE ED provider HPI ( Dr Goebel. HARRIS): Kimi Sarah is a 19 y.o. female presenting with toxic ingestion suicide attempt. Approximately 1 hour prior to ED arrival and a suicidal gesture the patient took a total of clonidine 0.1 mg x 8, hydroxyzine 25 mg x 8, and Lexapro 5 mg times unknown number. She said that the gesture was impulsive and that she immediately grabbed it so called her mom. Mom called 911 and accompanies the patient to the ED. Upon arrival in the ED she states that she is very sleepy and barely can keep her eyes open. Patient has been hypotensive in ED, refractory to IVF boluses and requiring norpinephrine gtts vasopressor support with stable airway. Poison control is involved. CCM is called to assess patient for ICU admission and CCM management. HCG negative. Afebrile. VS acceptable on norepinephrine 0.05 mcg/kg/min Qtc 484, 480. LOIACONO 09/02: Transfer of care received from [facility] long term care pharmacist Marion Stephenson APRN. Overnight events and EMR reviewed. Patient examined and discussed with ICU bedside nurse and ICU Multidisciplinary team on AM rounds. Overnight and AM noteable events include: No new clinical events overnight Afebrile, VS remain tenuous @ 24h S/P ingestion BP continues be refractory to fluid boluses on midodrine and requires norepi gtt to support MAP Patient has been sullen but calm, cooperative and reports having slept well. Amy denies SI today and appears remorseful regarding yesterdays intentional drug ingestion, but states could not express why she felt or acted that way she did yesterday . She is hungry, denies nasea an requests food. Parents are at patient bedside and appear supportive of patient and plan of care Psychiatry Consult (Monique Sigala APRN) is pending. OBJECTIVE FLUID BALANCE VITAL SIGNS Intake/Output Summary (Last 24 hours) at 09/02/2025 1245 Last data filed at 09/02/2025 0202 Gross per 24 hour Intake 614.85 ml Output 300 ml Net 314.85 ml Weight change: Visit Vitals BP 87/54 Pulse 66 Temp 36.4 ??C (97.5 ??F) (Temporal) Resp 18 OXYGENATION AND VENTILATION ABG No results found for: PHART , VCC2HIN , PO2ART , JZY0UMK , L4VHMZDM , BEART , ALLENS , FIO2 PHYSICAL EXAMINATION Appearance: No Acute Distress. Depressed affect Mental Status: A,A, & O x 3. appropriately conversant Head Exam: Normocephalic, Symmetric HEENT: Sclera Anicteric, PERRL, Moist Mucous Membranes, Trachea Midline, No JVD. Chest: CTA bilaterally. No Accessory Muscle Use. Cardiac: RRR without audible M/R/G Abdomen: Soft, Non-tender, NABS Rectal Exam: Deferred : voiding qs clear jabari urine Skin: Skin Color Normal, Skin Temperature Normal, Skin Turgor Normal. CRF < 3sec Wound Present: No Upper Extremity Appearance: Normal, Symmetric. Extremity muscle appearance and tone are unremarkable. Lower Extremity Appearance: Normal, Symmetric. Extremity muscle appearance and tone are unremarkable. Neuro: nonfocal motor exam and without sensory deficit Follows Commands: yes Motor Response: symmetric, non-focally localizes noxious stimuli all 4 extremities Sensory Response: nonfocally localizes noxious stimuli all 4 extremities CURRENT MEDICATIONS Scheduled Meds: MEDSSCHEDULED[1] MEDSCONTINUOUS[2] MEDSPRN[3] Continuous Infusions:MEDSCONTINUOUS[4] PRN Meds: MEDSPRN[5] LINES & DRAINS PICC 09/01/25 Double Lumen Right Basilic (Active) Site Assessment Clean;Dry;Intact 09/02/25 115 Proximal Lumen Status Infusing 09/02/25 0400 Distal Lumen Status Infusing 09/02/25 0400 Phlebitis Scale 0 09/02/251157 Length martin (cm) 3 cm 09/01/252229 Dressing Type Transparent with Chlorhexidine Gluconate gel 09/02/251157 Dressing Status Clean;Dry;Intact 09/02/251157 Dressing Intervention Dressing changed 09/01/252229 Dressing Change Due 09/08/25 09/01/252229 Line Necessity Yes, meets criteria 09/01/251956 Peripheral IV 09/01/25 Anterior;Left Forearm (Active) Site Assessment Clean;Dry;Intact 09/02/25612 Dressing Type Transparent 09/02/25612 Line Status Capped;Cap Change;Flushed;Saline locked 09/02/25612 Phlebitis Scale 0 09/02/25612 Dressing Status Clean;Dry;Intact 09/02/25 06 NUTRITION Diet Order: Dietary Orders (From admission, onward) Start Ordered 09/02/25 0959 Adult diet [facility]; General; Regular; No Straws, Patient Safety Tray Diet effective 0500 Question Answer Comment Location [facility] Diet Type (req) General General Diet Regular Miscellaneous No Straws Miscellaneous Patient Safety Tray 09/02/25 0958 LAB RESULTS Lab Results Component Value Date WBC 9.8 09/02/2025 RBC 3.90 09/02/2025 HGB 12.2 09/02/2025 HCT 36.5 09/02/2025 MCV 93.6 09/02/2025 MCHC 33.4 09/02/2025 RDW 11.9 09/02/2025 PLT 256 09/02/2025 MPV 9.0 09/02/2025 NRBC 0.0 09/02/2025 DIFF Lab Results Component Value Date LYMPHOPCT 26.8 09/02/2025 NEUTROABS 5.86 09/02/2025 LYMPHSABS 2.63 09/02/2025 MONOABS 0.94 09/02/2025 EOSABS 0.29 09/02/2025 BASOSABS 0.06 09/02/2025 IMMGRANABS 0.03 09/02/2025 RETIC No results found for: RETIC , RETICCTPCT Lab Results Component Value Date NA 138 09/02/2025 K 3.8 09/02/2025 CL 105 09/02/2025 CO2 26 09/02/2025 GLUCOSE 106 (H) 09/02/2025 BUN 3 (L) 09/02/2025 CREATININE 0.41 (L) 09/02/2025 CALCIUM 9.1 09/02/2025 PROT 6.6 09/02/2025 ALBUMIN 3.7 09/02/2025 BILITOT 0.7 09/02/2025 AST 11 09/02/2025 ALT 33 09/02/2025 PHOS 3.1 09/02/2025 MG 2.1 09/02/2025 ALKPHOS 75 09/02/2025 EGFR 146 09/02/2025 RADIOLOGY I have reviewed the relevant diagnostic imaging MICROBIOLOGY I have reviewed the relevant microbiology ASSESSMENT & PLAN Diagnosis (ACUTE/Chronic) Plan Neuro: Suicide attempt by drug ingestion Depression Suicidal Ideation -Pain control: denies pain -Sedation/Anxiety management: denies anxiety -Psychiatry consult (Monique Sigala APRN) pending tomorrow -bedside 1:1 PSA -Hourly neuro and assessment -Poison Control team input appreciated Cardiovascular/Hematological: Arterial hypotension due to drug -clonidine overdose -Full Code -target MAP > 65 mmHg -increase midodrine dose to midodrine -continued serial ECGs PRN -wean norepi to off based on MAP target Heme: No acute issues -transfusion trigger Hb < 7.0 g/dl -VTE prophylaxis: mechanical, heparin SC Pulmonary: No acute issues -Target SaO2 > 92% -Albuterol nebs scheduled and PRN GI/Nutrition: Nausea (resolved) -Peptic Ulcer Prophylaxis: Pantoprazole -regular diet with safety tray /Renal/Lytes: No acute issues -target UO > 0.5 cc/kg/h Adjusted IBW -replace electrolytes to WNL Endocrine: No acute issues -target BG 140-180 -SSI ICU protocol ID: No acute issues -assess antimicrobials, when present, daily for potential de-escalation. Social: Patient/family(mother-Lida Saarh, and father) updated regarding patient status, response to therapy and plan of care. Skin/Wound: -Wound prevention positioning DISPOSITION: Continue ICU level of care while vasopressors are rquired 66 minutes of critical care time was spent in direct patient care at the bedside or in the immediate area with this patient. They are acutely ill with system failure. They are at moderate risk for decompensation. This time was spent assessing and managing the patient, interpreting labs and imaging,coordinating care with other medical providers, and gathering history and discussing management andprognosis with family. Oliva Puri MD [1] enoxaparin, 40 mg, subcutaneous, q24h LISETTE midodrine, 5 mg, oral, TID AC pantoprazole, 40 mg, intravenous, q24h [2] dextrose 5 % lactated ringers, 50 mL/hr, Last Rate: 50 mL/hr (09/02/25 1000) norepinephrine, 0.01-0.99 mcg/kg/min, Last Rate: 0.02 mcg/kg/min (09/02/25 1018) [3] [4] dextrose 5 % lactated ringers, 50 mL/hr, Last Rate: 50 mL/hr (09/02/25 1000) norepinephrine, 0.01-0.99 mcg/kg/min, Last Rate: 0.02 mcg/kg/min (09/02/25 1018) [5] * Aye Rodriugez RN - 09/02/2025 10:41 AM EDT 09/02/25 1038 Initial Transition Plan Initial Transition Plan Home Discharge Planning Contact (Name, Phone #, Relationship) for DC Planning Lida Sarah mother [phone] Living Arrangements Parent Type of Residence Private residence (two level home with three steps to enter) Assistive Devices None Support Systems Parent Medication Coverage Has Med Coverage Under Insurance Plan Yes Medication Affordability No concerns related to payment for meds Informed Choice Informed Choice Given? Yes (choice form completed) Met with pt/mother Lida in regards to discharge planning, demographics, PCP, insurance reviewed. Pt is not a . Uses [facility]. Mother assists with shopping/appts. No current in home services. Pt referred to social work specialist. Psychiatric consult pending. * Miracle Low RN - 09/01/2025 6:28 PM EDT Goals: Identify possible barriers to meeting goals/advancing plan of care: Stability of the patient: End of Shift Summary: * Xiao Madera RN - 09/01/2025 4:18 PM EDT Update provided to poison control- per poison control if hr dips further and bp drops to give atropine, but at this time continue treatment. Xiao Madera RN 09/01/25 1619 * Elyssa Culver - 09/01/2025 3:45 PM EDT Images from the original note were not included. Medication History Wellness Trainer Medication history has been obtained for Kimi Sarah (2005) by a Medication Historian and the home med list has been updated. History obtained from conversation with: Relative Additional Source(s) of History: Dispense history (no discrepancy between med list and fill history) []Updated Patient Preferred Pharmacy The Patient's Home Medications include: HOME MEDICATIONS INSTRUCTIONS citalopram (CeleXA) 40 mg tablet Take 1 tablet (40 mg total) by mouth 1 (one) time each day. cloNIDine (CATAPRES) 0.1 mg tablet Take 1 tablet (0.1 mg total) by mouth at bedtime. Thank you,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 starting 09/03/2025 until 09/03/2025 Phosphorus Lab Routine Once for 1 Occ urrences starting 09/03/2025 until 09/03/2025 documented as of this encounter Procedures Procedure Name Priority Date/Time Associated Diagnosis Comments ECG 12-LEAD Routine 09/04/2025 3:46 PM EST CBC WITH AUTO DIFFERENTIAL Routine 09/04/2025 4:09 AM EST CBC AND DIFFERENTIAL Routine 09/04/2025 4:09 AM EST PHOSPHORUS Routine 09/04/2025 4:09 AM EST MAGNESIUM Routine 09/04/2025 4:09 AM EST CALCIUM, IONIZED Routine 09/04/2025 4:09 AM EST BASIC METABOLIC PANEL Routine 09/04/2025 4:09 AM EST POCT GLUCOSE BLOOD Routine 09/03/2025 11 :06 PM EST POCT GLUCOSE BLOOD Routine 09/03/2025 4: 38 PM EST EXTRA TUBES Routine 09/03/2025 12:36 PM EST LAVENDER - EDTA Routine 09/03/2025 12:36 PM EST PHOSPHORUS STAT 09/03/2025 12:36 PM EST MAGNESIUM STAT 09/03/2025 12:36 PM EST BASIC METABOLIC PANEL STAT 09/03/2025 12:36 PM EST CBC WITH AUTO DIFFERENTIAL Routine 09/03/2025 4:50 AM EST CBC AND DIFFERENTIAL Routine 09/03/2025 4:50 AM EST PHOSPHORUS Routine 09/03/2025 4:50 AM EST MAGNESIUM Routine 09/03/2025 4:50 AM EST CALCIUM, IONIZED Routine 09/03/2025 4:50 AM EST HEPATIC FUNCTION PANEL Routine 4:50 AM EST BASIC METABOLIC PANEL Routine 09/03/2025 4:50 AM EST POCT GLUCOSE BLOOD Routine 09/02/2025 11 :40 PM EDT POCT GLUCOSE BLOOD Routine 09/02/2025 4: 13 PM EDT CBC WITH AUTO DIFFERENTIAL Routine 09/02/2025 4:12 AM EDT CBC AND DIFFERENTIAL Routine 09/02/2025 4:12 AM EDT PHOSPHORUS Routine 09/02/2025 4:12 AM EDT MAGNESIUM Routine 09/02/2025 4:12 AM EDT CALCIUM, IONIZED Routine 09/02/2025 4:12 AM EDT HEPATIC FUNCTION PANEL Routine 4:12 AM EDT BASIC METABOLIC PANEL Routine 09/02/2025 4:12 AM EDT ECG 12-LEAD Routine 09/01/2025 11:29 PM EDT POCT GLUCOSE BLOOD Routine 09/01/2025 11 :21 PM EDT XR CHEST 1 VIEW STAT 09/01/2025 9:07 PM EDT PHOSPHORUS STAT 09/01/2025 8:58 PM EDT MAGNESIUM STAT 09/01/2025 8:58 PM EDT CALCIUM, IONIZED STAT 09/01/2025 8:58 PM EDT BASIC METABOLIC PANEL STAT 09/01/2025 8:58 PM EDT ECG 12-LEAD Routine 09/01/2025 8:49 PM EDT INSERT PICC LINE Routine 09/01/2025 7:58 PM EDT ECG 12-LEAD STAT 09/01/2025 7:03 PM EDT ECG 12-LEAD STAT 09/01/2025 4:54 PM EDT DRUG ABUSE SCREEN 8A PANEL, URINE STAT 09/01/2025 3:26 PM EDT BUPRENORPHINE SCREEN, URINE STAT 09/01/2025 3:26 PM EDT METHADONE SCREEN, URINE STAT 09/01/2025 3:26 PM EDT PHENCYCLIDINE, URINE STAT 09/01/2025 3:26 PM EDT POC , URINE DIAGNOSTIC STAT 09/01/2025 3:23 PM EDT ECG 12-LEAD STAT 09/01/2025 3:21 PM EDT CBC WITH AUTO DIFFERENTIAL STAT 09/01/2025 1:21 PM EDT CBC AND DIFFERENTIAL STAT 09/01/2025 1:21 PM EDT ETHANOL STAT 09/01/2025 1:21 PM EDT ACETAMINOPHEN LEVEL STAT 09/01/2025 1 :21 PM EDT SALICYLATE LEVEL STAT 09/01/2025 1:21 PM EDT COMPREHENSIVE METABOLIC PANEL STAT 09/01/2025 1:21 PM EDT ECG 12-LEAD STAT 09/01/2025 1:06 PM EDT AR CRITICAL CARE 30-74 MINUTES Routine 09/01/2025 12:35 PM EDT documented in this encounter Results * ECG 12 lead (09/04/2025 3:46 PM EST) Pathologist [facility] Ventricular Rate ECG 114 BPM GEMUSE Atrial Rate 114 BPM GEMUSE P-R Interval 130 ms GEMUSE QRS Duration 78 ms GEMUSE Q-T Interval 334 ms GEMUSE QTc 460 ms GEMUSE P Wave [place] 35 degrees GEMUSE R [place] 31 degrees GEMUSE T [place] 1 degrees GEMUSE ECG Interpretation Sinus tachycardia Nonspecific ST and T wave abnormality When compared with ECG of 04-SEP-2025 15:45, (unconfirmed) heart rate has increased by 59 Confirmed by Navdeep NAYLOR YUFENG ([id number]) on 09/04/2025 4:43:02 PM GEMUSE 09/04/2025 3:46 PM EST 09/04/2025 4:43 PM EST us Niki Greenberg MD ECG ORDERABLES Final Result GEMUSE * (ABNORMAL) CBC auto differential (09/04/2025 4:09 AM EST) Pathologist [facility] WBC 10.9(H) 4.8 - 10.8 K/mcL LAB HEMETOLOGY METHOD 09/04/2025 4:21 AM EST [facility] RBC 3.90 3.80 - 4.80 M/mcL LAB HEMETOLOGY METHOD 09/04/2025 4:21 AM EST [facility] Hemoglobin 12.1 11.5 - 16.0 g/dL LAB HEMETOLOGY METHOD 09/04/2025 4:21 AM EST [facility] Hematocrit 36.4 35.0 - 47.0 % LAB HEMETOLOGY METHOD 09/04/2025 4:21 AM [facility] MCV 93.3 79.0 - 98.0 FL LAB HEMETOLOGY METHOD 09/04/2025 4:21 AM [facility] MCH 31.0 27.0 - 32.0 pcg LAB HEMETOLOGY METHOD 09/04/2025 4:21 AM [facility] MCHC 33.2 32.0 - 37.0 g/dL LAB HEMETOLOGY METHOD 09/04/2025 4:21 AM [facility] RDW 12.0 11.0 - 15.0 % LAB HEMETOLOGY METHOD 09/04/2025 4:21 AM [facility] Platelets 249 130 - 400 K/mcL LAB HEMETOLOGY METHOD 09/04/2025 4:21 AM [facility] MPV 9.1 7.0 - 11.0 FL LAB HEMETOLOGY METHOD 09/04/2025 4:21 AM [facility] NRBC 0.0 <1.0 % LAB HEMETOLOGY METHOD 09/04/2025 4:21 AM [facility] NRBC Absolute 0.00 <0.10 K/mcL LAB HEMETOLOGY METHOD 09/04/2025 4:21 AM [facility] Neutrophils Relative 57.5 % LAB HEMETOLOGY METHOD 09/04/2025 4:21 AM [facility] Lymphocytes Relative 26.9 % LAB HEMETOLOGY METHOD 09/04/2025 4:21 AM [facility] Monocytes Relative 11.1 % LAB HEMETOLOGY METHOD 09/04/2025 4:21 AM [facility] Eosinophils Relative 3.5 % LAB HEMETOLOGY METHOD 09/04/2025 4:21 AM [facility] Basophils Relative 0.6 % LAB HEMETOLOGY METHOD 09/04/2025 4:21 AM EST [facility] Immature Granulocytes Relative 0.4 % LAB HEMETOLOGY METHOD 09/04/2025 4:21 AM EST [facility] Neutrophils Absolute 6.29 1.50 - 7.00 K/mcL LAB HEMETOLOGY METHOD 09/04/2025 4:21 AM [facility] Lymphocytes Absolute 2.94 1.00 - 5.00 K/mcL LAB HEMETOLOGY METHOD 09/04/2025 4:21 AM [facility] Monocytes Absolute 1.21(H) 0.20 - 1.00 K/mcL LAB HEMETOLOGY METHOD 09/04/2025 4:21 AM [facility] Eosinophils Absolute 0.38 0.00 - 0.50 K/mcL LAB HEMETOLOGY METHOD 09/04/2025 4:21 AM [facility] Basophils Absolute 0.07 0.00 - 0.20 K/mcL LAB HEMETOLOGY METHOD 09/04/2025 4:21 AM [facility] Immature Granulocytes Absolute 0.04(H) 0.00 - 0.03 K/mcL LAB HEMETOLOGY METHOD 09/04/2025 4:21 AM [facility] Blood Venous blood specimen / Unknown Venipuncture / Unknown 09/04/2025 4:09 AM EST 09/04/2025 4:16 AM EST us Oliva Puri MD LAB BLOOD ORDERABLES Final Re sult [facility] [address] [place] [address], * (ABNORMAL) Basic metabolic panel (09/04/2025 4:09 AM EST) Sodium 137 133 - 145 mmol/L LAB CHEMISTRY METHOD 09/04/2025 4:50 AM EST [facility] Potassium 3.9 3.5 - 5.5 mmol/L LAB CHEMISTRY METHOD 09/04/2025 4:50 AM [facility] Chloride 107 96 - 110 mmol/L LAB CHEMISTRY METHOD 09/04/2025 4:50 AM [facility] CO2 26 21 - 32 mmol/L LAB CHEMISTRY METHOD 09/04/2025 4:50 AM [facility] Anion Gap 4 3 - 11 LAB CHEMISTRY METHOD 09/04/2025 4:50 AM [facility] Glucose 115(H) 70 - 100 mg/dL LAB CHEMISTRY METHOD 09/04/2025 4:50 AM [facility] BUN 5 5 - 25 mg/dL LAB CHEMISTRY METHOD 09/04/2025 4:50 AM [facility] Creatinine 0.54 0.50 - 1.10 mg/dL LAB CHEMISTRY METHOD 09/04/2025 4:50 AM [facility] eGFR 136 >=60 mL/min/1. 73m2 LAB CHEMISTRY METHOD 09/04/2025 4:50 AM [facility] Comment:Calculation based on the Chronic Kidney Disease Epidemiology Collaboration (CKD-EPI) equation refit without adjustment for race. BUN/Creatinine Ratio 9.3 LAB CHEMISTRY METHOD 09/04/2025 4:50 AM [facility] Calcium 9.3 8.5 - 10.5 mg/dL LAB CHEMISTRY METHOD 09/04/2025 4:50 AM [facility] Blood Venous blood specimen / Unknown Venipuncture / Unknown 09/04/2025 4:09 AM EST 09/04/2025 4:16 AM EST us Oliva Puri MD LAB BLOOD ORDERABLES Final Re sult [facility] [address] [place] [address], * Phosphorus (09/04/2025 4:09 AM EST) Phosphorus 3.9 2.5 - 4.5 mg/dL LAB CHEMISTRY METHOD 09/04/2025 4:50 AM EST [facility] Blood Venous blood specimen / Unknown Venipuncture / Unknown 09/04/2025 4:09 AM EST 09/04/2025 4:16 AM EST us Oliva Puri MD LAB BLOOD ORDERABLES Final Re sult Performing Organization Address [facility] Co de Phone Number [facility] [address] [place] [address], [place] [phone] * (ABNORMAL) Magnesium (09/04/2025 4:09 AM EST) Magnesium 1.8(L) 1.9 - 2.6 mg/dL LAB CHEMISTRY METHOD 09/04/2025 4:50 AM EST [facility] Blood Venous blood specimen / Unknown Venipuncture / Unknown 09/04/2025 4:09 AM EST 09/04/2025 4:16 AM EST us Oliva Puri MD LAB BLOOD ORDERABLES Final Re sult Performing Organization Address [facility] Co de Phone Number [facility] [address] [place] [address], [place] [phone] * Calcium, ionized (09/04/2025 4:09 AM EST) Calcium Ionized 4.90 4.50 - 5.30 mg/dL 09/04/2025 4:26 AM EST [facility] Blood Venous blood specimen / Unknown Venipuncture / Unknown 09/04/2025 4:09 AM EST 09/04/2025 4:16 AM EST us Oliva Puri MD LAB BLOOD ORDERABLES Final Re sult [facility] [address] [place] [address], [place] [phone] * (ABNORMAL) POCT Glucose, blood (09/03/2025 11:06 PM EST) Glucose POCT 131(H) 70 - 100 mg/dL 09/03/2025 11:06 PM EST [facility] Blood Capillary blood specimen / Unknown 09/03/2025 11:06 PM EST 09/03/2025 11:07 PM EST us Oliva Puri MD LAB POINT OF CARE TE ST DOCKED DEVICE UNSOLICITED RESULTS Final Result Performing Organization Address [facility]/ZIP Co de Phone Number [facility] [address] [place] [address], [place] [phone] * POCT Glucose, blood (09/03/2025 4:38 PM EST) Glucose POCT 95 70 - 100 mg/dL 09/03/2025 4:39 PM EST [facility] Blood Capillary blood specimen / Unknown 09/03/2025 4:38 PM EST 09/03/2025 4:40 PM EST us Oliva Puri MD LAB POINT OF CARE TE ST DOCKED DEVICE UNSOLICITED RESULTS Final Result Performing Organization Address City/[facility]/ZIP Co de Phone Number [facility] [address] [place] [address], [place] [phone] * Lavender tube (09/03/2025 12:36 PM EST) Extra Tube Hold for add-ons. 09/03/2025 2:01 PM EST [facility] Comment:Auto resulted. Blood Venous blood specimen / Unknown 09/03/2025 12:36 PM EST 09/03/2025 12:40 PM EST us Oliva Puri MD LAB BLOOD ORDERABLES Final Re sult Performing Organization Address City/[facility]/ZIP Co de Phone Number [facility] [address] [place] [address], [place] [phone] * Phosphorus (09/03/2025 12:36 PM EST) Pathologist [facility] Phosphorus 3.1 2.5 - 4.5 mg/dL LAB CHEMISTRY METHOD 09/03/2025 1:12 PM EST [facility] Blood Venous blood specimen / Unknown Venipuncture / Unknown 09/03/2025 12:36 PM EST 09/03/2025 12:40 PM EST us Oliva Puri MD LAB BLOOD ORDERABLES Final Re sult Performing Organization Address [facility] Co de Phone Number [facility] [address] [place] [address], [place] [phone] * Magnesium (09/03/2025 12:36 PM EST) [facility] Magnesium 2.1 1.9 - 2.6 mg/dL LAB CHEMISTRY METHOD 09/03/2025 1:12 PM EST [facility] Blood Venous blood specimen / Unknown Venipuncture / Unknown 09/03/2025 12:36 PM EST 09/03/2025 12:40 PM EST us Oliva Puri MD LAB BLOOD ORDERABLES Final Re sult Performing Organization Address City/[facility]/ZIP Co de Phone Number [facility] [address] [place] [address], [place] [phone] * Basic metabolic panel (09/03/2025 12:36 PM EST) Sodium 139 133 - 145 mmol/L LAB CHEMISTRY METHOD 09/03/2025 1:12 PM EST [facility] Potassium 4.0 3.5 - 5.5 mmol/L LAB CHEMISTRY METHOD 09/03/2025 1:12 PM [facility] Chloride 108 96 - 110 mmol/L LAB CHEMISTRY METHOD 09/03/2025 1:12 PM [facility] CO2 27 21 - 32 mmol/L LAB CHEMISTRY METHOD 09/03/2025 1:12 PM [facility] Anion Gap 4 3 - 11 LAB CHEMISTRY METHOD 09/03/2025 1:12 PM [facility] Glucose 100 70 - 100 mg/dL LAB CHEMISTRY METHOD 09/03/2025 1:12 PM [facility] BUN 8 5 - 25 mg/dL LAB CHEMISTRY METHOD 09/03/2025 1:12 PM [facility] Creatinine 0.62 0.50 - 1.10 mg/dL LAB CHEMISTRY METHOD 09/03/2025 1:12 PM [facility] eGFR 132 >=60 mL/min/1. 73m2 LAB CHEMISTRY METHOD 09/03/2025 1:12 PM [facility] Comment:Calculation based on the Chronic Kidney Disease Epidemiology Collaboration (CKD-EPI) equation refit without adjustment for race. BUN/Creatinine Ratio 12.9 LAB CHEMISTRY METHOD 09/03/2025 1:12 PM [facility] Calcium 9.4 8.5 - 10.5 mg/dL LAB CHEMISTRY METHOD 09/03/2025 1:12 PM [facility] Blood Venous blood specimen / Unknown Venipuncture / Unknown 09/03/2025 12:36 PM EST 09/03/2025 12:40 PM EST us Oliva Puri MD LAB BLOOD ORDERABLES Final Re sult [facility] [address] [place] [address], * CBC auto differential (09/03/2025 4:50 AM EST) [facility] WBC 9.2 4.8 - 10.8 K/mcL LAB HEMETOLOGY METHOD 09/03/2025 5:09 AM [facility] RBC 4.10 3.80 - 4.80 M/mcL LAB HEMETOLOGY METHOD 09/03/2025 5:09 AM [facility] Hemoglobin 12.8 11.5 - 16.0 g/dL LAB HEMETOLOGY METHOD 09/03/2025 5:09 AM [facility] Hematocrit 38.8 35.0 - 47.0 % LAB HEMETOLOGY METHOD 09/03/2025 5:09 AM [facility] MCV 94.2 79.0 - 98.0 FL LAB HEMETOLOGY METHOD 09/03/2025 5:09 AM [facility] MCH 31.1 27.0 - 32.0 pcg LAB HEMETOLOGY METHOD 09/03/2025 5:09 AM [facility] MCHC 33.0 32.0 - 37.0 g/dL LAB HEMETOLOGY METHOD 09/03/2025 5:09 AM [facility] RDW 11.9 11.0 - 15.0 % LAB HEMETOLOGY METHOD 09/03/2025 5:09 AM [facility] Platelets 263 130 - 400 K/mcL LAB HEMETOLOGY METHOD 09/03/2025 5:09 AM [facility] MPV 9.1 7.0 - 11.0 FL LAB HEMETOLOGY METHOD 09/03/2025 5:09 AM [facility] NRBC 0.0 <1.0 % LAB HEMETOLOGY METHOD 09/03/2025 5:09 AM [facility] NRBC Absolute 0.00 <0.10 K/mcL LAB HEMETOLOGY METHOD 09/03/2025 5:09 AM [facility] Neutrophils Relative 53.0 % LAB HEMETOLOGY METHOD 09/03/2025 5:09 AM [facility] Lymphocytes Relative 32.0 % LAB HEMETOLOGY METHOD 09/03/2025 5:09 AM [facility] Monocytes Relative 10.0 % LAB HEMETOLOGY METHOD 09/03/2025 5:09 AM [facility] Eosinophils Relative 3.9 % LAB HEMETOLOGY METHOD 09/03/2025 5:09 AM [facility] Basophils Relative 0.8 % LAB HEMETOLOGY METHOD 09/03/2025 5:09 AM [facility] Immature Granulocytes Relative 0.3 % LAB HEMETOLOGY METHOD 09/03/2025 5:09 AM [facility] Neutrophils Absolute 4.89 1.50 - 7.00 K/mcL LAB HEMETOLOGY METHOD 09/03/2025 5:09 AM [facility] Lymphocytes Absolute 2.95 1.00 - 5.00 K/mcL LAB HEMETOLOGY METHOD 09/03/2025 5:09 AM [facility] Monocytes Absolute 0.92 0.20 - 1.00 K/mcL LAB HEMETOLOGY METHOD 09/03/2025 5:09 AM [facility] Eosinophils Absolute 0.36 0.00 - 0.50 K/mcL LAB HEMETOLOGY METHOD 09/03/2025 5:09 AM [facility] Basophils Absolute 0.07 0.00 - 0.20 K/mcL LAB HEMETOLOGY METHOD 09/03/2025 5:09 AM [facility] Immature Granulocytes Absolute 0.03 0.00 - 0.03 K/mcL LAB HEMETOLOGY METHOD 09/03/2025 5:09 AM [facility] Blood Venous blood specimen / Unknown Venipuncture / Unknown 09/03/2025 4:50 AM EST 09/03/2025 5:03 AM EST us Oliva Puri MD LAB BLOOD ORDERABLES Final Re sult [facility] [address] [place] [address], [place] [phone] * (ABNORMAL) Basic metabolic panel (09/03/2025 4:50 AM EST) Sodium 138 133 - 145 mmol/L LAB CHEMISTRY METHOD 09/03/2025 5:46 AM EST [facility] Potassium 4.0 3.5 - 5.5 mmol/L LAB CHEMISTRY METHOD 09/03/2025 5:46 AM [facility] Chloride 107 96 - 110 mmol/L LAB CHEMISTRY METHOD 09/03/2025 5:46 AM [facility] CO2 28 21 - 32 mmol/L LAB CHEMISTRY METHOD 09/03/2025 5:46 AM [facility] Anion Gap 3 3 - 11 LAB CHEMISTRY METHOD 09/03/2025 5:46 AM [facility] Glucose 114(H) 70 - 100 mg/dL LAB CHEMISTRY METHOD 09/03/2025 5:46 AM [facility] BUN 6 5 - 25 mg/dL LAB CHEMISTRY METHOD 09/03/2025 5:46 AM [facility] Creatinine 0.63 0.50 - 1.10 mg/dL LAB CHEMISTRY METHOD 09/03/2025 5:46 AM [facility] eGFR 131 >=60 mL/min/1. 73m2 LAB CHEMISTRY METHOD 09/03/2025 5:46 AM [facility] Comment:Calculation based on the Chronic Kidney Disease Epidemiology Collaboration (CKD-EPI) equation refit without adjustment for race. BUN/Creatinine Ratio 9.5 LAB CHEMISTRY METHOD 09/03/2025 5:46 AM [facility] Calcium 9.3 8.5 - 10.5 mg/dL LAB CHEMISTRY METHOD 09/03/2025 5:46 AM EST [facility] Blood Venous blood specimen / Unknown Venipuncture / Unknown 09/03/2025 4:50 AM EST 09/03/2025 5:02 AM EST us Oliva Puri MD LAB BLOOD ORDERABLES Final Re sult Performing Organization Address [facility]/ZIP Co de Phone Number [facility] [address] [place] [address], [place] [phone] * Phosphorus (09/03/2025 4:50 AM EST) Phosphorus 3.8 2.5 - 4.5 mg/dL LAB CHEMISTRY METHOD 09/03/2025 5:43 AM EST [facility] Blood Venous blood specimen / Unknown Venipuncture / Unknown 09/03/2025 4:50 AM EST 09/03/2025 5:02 AM EST us Oliva Puri MD LAB BLOOD ORDERABLES Final Re sult Performing Organization Address [facility] Co de Phone Number [facility] [address] [place] [address], [place] [phone] * (ABNORMAL) Magnesium (09/03/2025 4:50 AM EST) Magnesium 1.8(L) 1.9 - 2.6 mg/dL LAB CHEMISTRY METHOD 09/03/2025 5:43 AM EST [facility] Blood Venous blood specimen / Unknown Venipuncture / Unknown 09/03/2025 4:50 AM EST 09/03/2025 5:02 AM EST us Oliva Puri MD LAB BLOOD ORDERABLES Final Re sult Performing Organization Address City/[facility]/ZIP Co de Phone Number [facility] [address] [place] [address], [place] [phone] * Calcium, ionized (09/03/2025 4:50 AM EST) [facility] Calcium Ionized 4.53 4.50 - 5.30 mg/dL 09/03/2025 5:20 AM [facility] Blood Venous blood specimen / Unknown Venipuncture / Unknown 09/03/2025 4:50 AM EST 09/03/2025 5:04 AM EST Oliva Puri MD LAB BLOOD ORDERABLES Final Re sult [facility] [address] [place] [address], [place] [phone] * (ABNORMAL) Hepatic function panel (09/03/2025 4:50 AM EST) [facility] Total Protein 6.7 6.0 - 8.0 g/dL LAB CHEMISTRY METHOD 09/03/2025 5:43 AM [facility] Albumin 3.7 3.2 - 5.0 g/dL LAB CHEMISTRY METHOD 09/03/2025 5:43 AM [facility] Total Bilirubin 0.6 0.0 - 1.4 mg/dL LAB CHEMISTRY METHOD 09/03/2025 5:43 AM [facility] Bilirubin, Direct 0.2 0.0 - 0.3 mg/dL LAB CHEMISTRY METHOD 09/03/2025 5:43 AM [facility] Bilirubin, Indirect 0.4 0.0 - 1.1 mg/dL LAB CHEMISTRY METHOD 09/03/2025 5:43 AM [facility] ALT (SGPT) 25 10 - 60 unit/L LAB CHEMISTRY METHOD 09/03/2025 5:43 AM [facility] AST (SGOT) 9(L) 10 - 42 unit/L LAB CHEMISTRY METHOD 09/03/2025 5:43 AM EST [facility] Alkaline Phosphatase 78 42 - 121 unit/L LAB CHEMISTRY METHOD 09/03/2025 5:43 AM EST [facility] Blood Venous blood specimen / Unknown Venipuncture / Unknown 09/03/2025 4:50 AM EST 09/03/2025 5:02 AM EST us Oliva Puri MD LAB BLOOD ORDERABLES Final Re sult Performing Organization Address [facility]/ZIP Co de Phone Number [facility] [address] [place] [address], [place] [phone] * (ABNORMAL) POCT Glucose, blood (09/02/2025 11:40 PM EDT) Glucose POCT 120(H) 70 - 100 mg/dL 09/02/2025 11:41 PM EDT [facility] Blood Capillary blood specimen / Unknown 09/02/2025 11:40 PM EDT 09/02/2025 11:42 PM EDT us Oliva Puri MD LAB POINT OF CARE TE ST DOCKED DEVICE UNSOLICITED RESULTS Final Result Performing Organization Address [facility] Co de Phone Number [facility] [address] [place] [address], [place] [phone] * (ABNORMAL) POCT Glucose, blood (09/02/2025 4:13 PM EDT) Glucose POCT 111(H) 70 - 100 mg/dL 09/02/2025 4:13 PM EDT [facility] Blood Capillary blood specimen / Unknown 09/02/2025 4:13 PM EDT 09/02/2025 4:15 PM EDT us Oliva Puri MD LAB POINT OF CARE TE ST DOCKED DEVICE UNSOLICITED RESULTS Final Result Performing Organization Address City/[facility]/ZIP Co de Phone Number [facility] [address] [place] [address], * CBC auto differential (09/02/2025 4:12 AM EDT) [facility] WBC 9.8 4.8 - 10.8 K/mcL LAB HEMETOLOGY METHOD 09/02/2025 4:39 AM EDT [facility] RBC 3.90 3.80 - 4.80 M/mcL LAB HEMETOLOGY METHOD 09/02/2025 4:39 AM EDT [facility] Hemoglobin 12.2 11.5 - 16.0 g/dL LAB HEMETOLOGY METHOD 09/02/2025 4:39 AM EDT [facility] Hematocrit 36.5 35.0 - 47.0 % LAB HEMETOLOGY METHOD 09/02/2025 4:39 AM EDT [facility] MCV 93.6 79.0 - 98.0 FL LAB HEMETOLOGY METHOD 09/02/2025 4:39 AM EDT [facility] MCH 31.3 27.0 - 32.0 pcg LAB HEMETOLOGY METHOD 09/02/2025 4:39 AM EDT [facility] MCHC 33.4 32.0 - 37.0 g/dL LAB HEMETOLOGY METHOD 09/02/2025 4:39 AM EDT [facility] RDW 11.9 11.0 - 15.0 % LAB HEMETOLOGY METHOD 09/02/2025 4:39 AM EDT [facility] Platelets 256 130 - 400 K/mcL LAB HEMETOLOGY METHOD 09/02/2025 4:39 AM EDT [facility] MPV 9.0 7.0 - 11.0 FL LAB HEMETOLOGY METHOD 09/02/2025 4:39 AM EDT [facility] NRBC 0.0 <1.0 % LAB HEMETOLOGY METHOD 09/02/2025 4:39 AM [facility] NRBC Absolute 0.00 <0.10 K/mcL LAB HEMETOLOGY METHOD 09/02/2025 4:39 AM [facility] Neutrophils Relative 59.7 % LAB HEMETOLOGY METHOD 09/02/2025 4:39 AM [facility] Lymphocytes Relative 26.8 % LAB HEMETOLOGY METHOD 09/02/2025 4:39 AM [facility] Monocytes Relative 9.6 % LAB HEMETOLOGY METHOD 09/02/2025 4:39 AM [facility] Eosinophils Relative 3.0 % LAB HEMETOLOGY METHOD 09/02/2025 4:39 AM [facility] Basophils Relative 0.6 % LAB HEMETOLOGY METHOD 09/02/2025 4:39 AM [facility] Immature Granulocytes Relative 0.3 % LAB HEMETOLOGY METHOD 09/02/2025 4:39 AM [facility] Neutrophils Absolute 5.86 1.50 - 7.00 K/mcL LAB HEMETOLOGY METHOD 09/02/2025 4:39 AM [facility] Lymphocytes Absolute 2.63 1.00 - 5.00 K/mcL LAB HEMETOLOGY METHOD 09/02/2025 4:39 AM [facility] Monocytes Absolute 0.94 0.20 - 1.00 K/mcL LAB HEMETOLOGY METHOD 09/02/2025 4:39 AM [facility] Eosinophils Absolute 0.29 0.00 - 0.50 K/mcL LAB HEMETOLOGY METHOD 09/02/2025 4:39 AM [facility] Basophils Absolute 0.06 0.00 - 0.20 K/mcL LAB HEMETOLOGY METHOD 09/02/2025 4:39 AM [facility] Immature Granulocytes Absolute 0.03 0.00 - 0.03 K/mcL LAB HEMETOLOGY METHOD 09/02/2025 4:39 AM EDT [facility] Blood Blood sample taken from central line / Unknown Existing Catheter / Unknown 09/02/2025 4:12 AM EDT 09/02/2025 4:32 AM EDT us Marion Stephenson NP LAB BLOOD ORDERABLES Final Resul t [facility] [address] [place] [address], [place] [phone] * Hepatic function panel (09/02/2025 4:12 AM EDT) Total Protein 6.6 6.0 - 8.0 g/dL LAB CHEMISTRY METHOD 09/02/2025 5:01 AM [facility] Albumin 3.7 3.2 - 5.0 g/dL LAB CHEMISTRY METHOD 09/02/2025 5:01 AM [facility] Total Bilirubin 0.7 0.0 - 1.4 mg/dL LAB CHEMISTRY METHOD 09/02/2025 5:01 AM [facility] Bilirubin, Direct 0.2 0.0 - 0.3 mg/dL LAB CHEMISTRY METHOD 09/02/2025 5:01 AM [facility] Bilirubin, Indirect 0.5 0.0 - 1.1 mg/dL LAB CHEMISTRY METHOD 09/02/2025 5:01 AM [facility] ALT (SGPT) 33 10 - 60 unit/L LAB CHEMISTRY METHOD 09/02/2025 5:01 AM [facility] AST (SGOT) 11 10 - 42 unit/L LAB CHEMISTRY METHOD 09/02/2025 5:01 AM [facility] Alkaline Phosphatase 75 42 - 121 unit/L LAB CHEMISTRY METHOD 09/02/2025 5:01 AM EDT [facility] Blood Blood sample taken from central line / Unknown Existing Catheter / Unknown 09/02/2025 4:12 AM EDT 09/02/2025 4:32 AM EDT us Marion Stephenson ROPE TIER LAB BLOOD ORDERABLES Final Resul t Performing Organization Address City/[facility]/ZIP Co de Phone Number [facility] [address] [place] [address], [place] [phone] * Calcium, ionized (09/02/2025 4:12 AM EDT) Calcium Ionized 4.70 4.50 - 5.30 mg/dL 09/02/2025 4:44 AM EDT [facility] Blood Blood sample taken from central line / Unknown Existing Catheter / Unknown 09/02/2025 4:12 AM EDT 09/02/2025 4:32 AM EDT us Marion Stephenson NP LAB BLOOD ORDERABLES Final Resul t Performing Organization Address [facility] Co de Phone Number [facility] [address] [place] [address], [place] [phone] * Phosphorus (09/02/2025 4:12 AM EDT) Phosphorus 3.1 2.5 - 4.5 mg/dL LAB CHEMISTRY METHOD 09/02/2025 5:01 AM EDT [facility] Blood Blood sample taken from central line / Unknown Existing Catheter / Unknown 09/02/2025 4:12 AM EDT 09/02/2025 4:32 AM EDT us Marion Stephenson ROPE TIER LAB BLOOD ORDERABLES Final Resul t Performing Organization Address City/[facility]/ZIP Co de Phone Number [facility] [address] [place] [address], [place] [phone] * Magnesium (09/02/2025 4:12 AM EDT) Magnesium 2.1 1.9 - 2.6 mg/dL LAB CHEMISTRY METHOD 09/02/2025 5:01 AM [facility] Blood Blood sample taken from central line / Unknown Existing Catheter / Unknown 09/02/2025 4:12 AM EDT 09/02/2025 4:32 AM EDT us Marion Stephenson NP LAB BLOOD ORDERABLES Final Resul t [facility] [address] [place] [address], * (ABNORMAL) Basic metabolic panel (09/02/2025 4:12 AM EDT) Pathologist [facility] Sodium 138 133 - 145 mmol/L LAB CHEMISTRY METHOD 09/02/2025 5:01 AM [facility] Potassium 3.8 3.5 - 5.5 mmol/L LAB CHEMISTRY METHOD 09/02/2025 5:01 AM [facility] Chloride 105 96 - 110 mmol/L LAB CHEMISTRY METHOD 09/02/2025 5:01 AM [facility] CO2 26 21 - 32 mmol/L LAB CHEMISTRY METHOD 09/02/2025 5:01 AM [facility] Anion Gap 7 3 - 11 LAB CHEMISTRY METHOD 09/02/2025 5:01 AM [facility] Glucose 106(H) 70 - 100 mg/dL LAB CHEMISTRY METHOD 09/02/2025 5:01 AM [facility] BUN 3(L) 5 - 25 mg/dL LAB CHEMISTRY METHOD 09/02/2025 5:01 AM [facility] Creatinine 0.41(L) 0.50 - 1.10 mg/dL LAB CHEMISTRY METHOD 09/02/2025 5:01 AM [facility] eGFR 146 >=60 mL/min/1. 73m2 LAB CHEMISTRY METHOD 09/02/2025 5:01 AM EDT [facility] Comment:Calculation based on the Chronic Kidney Disease Epidemiology Collaboration (CKD-EPI) equation refit without adjustment for race. BUN/Creatinine Ratio 7.3 LAB CHEMISTRY METHOD 09/02/2025 5:01 AM EDT [facility] Calcium 9.1 8.5 - 10.5 mg/dL LAB CHEMISTRY METHOD 09/02/2025 5:01 AM EDT [facility] Blood Blood sample taken from central line / Unknown Existing Catheter / Unknown 09/02/2025 4:12 AM EDT 09/02/2025 4:32 AM EDT Marion Stephenson ROPE TIER LAB BLOOD ORDERABLES Final Resul t Performing Organization Address City/[facility] Co de Phone Number [facility] [address] [place] [address], * ECG 12 lead (09/01/2025 11:29 PM EDT) Ventricular Rate ECG 55 BPM [facility] Atrial Rate 55 BPM GEMUSE P-R Interval 142 ms GEMUSE QRS Duration 84 ms GEMUSE Q-T Interval 480 ms GEMUSE QTc 459 ms GEMUSE P Wave [place] 29 degrees GEMUSE R [place] 71 degrees GEMUSE T [place] 46 degrees GEMUSE ECG Interpretation Sinus bradycardia Otherwise normal ECG When compared with ECG of 01-SEP-2025 20:49, (unconfirmed) No significant change was found Confirmed by Navdeep LIRA JOHN ([id number]) on 09/03/2025 4:25:38 PM [facility] 09/01/2025 11:2 9 PM EDT 09/03/2025 4:25 PM EST Marion Stephenson ROPE TIER ECG ORDERABLES Final Result Performing Organization Address City/[facility] Co de Phone Number [facility] * POCT Glucose, blood (09/01/2025 11:21 PM EDT) Glucose POCT 91 70 - 100 mg/dL 09/01/2025 11:21 PM EDT [facility] Blood Capillary blood specimen / Unknown 09/01/2025 11:21 PM EDT 09/01/2025 11:22 PM EDT us Oliva Puri MD LAB POINT OF CARE TE ST DOCKED DEVICE UNSOLICITED RESULTS Final Result [facility] [address] [place] [address], [place] [phone] * XR Chest 1 View (09/01/2025 9:07 PM EDT) Anatomical Region Laterality Modality Body Radiographic Claudia ging 09/02/2025 7:09 AM EDT Impressions 09/02/2025 7:10 AM EDT Right PICC tip projects in expected region of right atrium. No pneumothorax. -------- FINAL REPORT -------- Dictated By: Claude Gudino Dictated Date: 09/02/2025 07:09 ET Assigned Physician: Claude Gudino Reviewed and Electronically Signed By: Claude Gudino Signed Date: 09/02/2025 07:10 ET Workstation ID: [id number] Transcribed By: Self Edit Transcribed Date: 09/02/2025 07:09 ET Narrative 09/02/2025 7:10 AM EDT EXAMINATION: CHEST CLINICAL INFORMATION: Evaluate tube and catheters. PICC line placement COMPARISON: None. TECHNIQUE: Portable frontal sitting view of the chest FINDINGS: Devices overlie the patient. There is slight rotation to the right. The right PICC tip projects in the expected region of the right atrium. No mediastinal widening. The cardiac size, karen, vasculature, lungs and visualized pleural margins are within normal limits. No suspicious focal bony lesion. Procedure Note Claude Gudino MD - 09/02/2025 EXAMINATION: CHEST CLINICAL INFORMATION: Evaluate tube and catheters. PICC line placement COMPARISON: None. TECHNIQUE: Portable frontal sitting view of the chest FINDINGS: Devices overlie the patient. There is slight rotation to the right. The right PICC tip projects in the expected region of the right atrium. No mediastinal widening. The cardiac size, karen, vasculature, lungs andvisualized pleural margins are within normal limits. No suspicious focal bony lesion. IMPRESSION: Right PICC tip projects in expected region of right atrium. Nopneumothorax. -------- FINAL REPORT -------- Dictated By: Claude Gudino Dictated Date: 09/02/2025 07:09 ET Assigned Physician: Claude Gudino Reviewed and Electronically Signed By: Claude Gudino Signed Date: 09/02/2025 07:10 ET Workstation ID: [id number] Transcribed By: Self Edit Transcribed Date: 09/02/2025 07:09 ET us Marion Stephenson NP IMG XR PROCEDURES Final Result * Calcium, ionized (09/01/2025 8:58 PM EDT) Calcium Ionized 4.73 4.50 - 5.30 mg/dL 09/01/2025 9:39 PM EDT [facility] Blood Blood sample taken from central line / Unknown Existing Catheter / Unknown 09/01/2025 8:58 PM EDT 09/01/2025 9:36 PM EDT us Marion Stephenson NP LAB BLOOD ORDERABLES Final Resul t [facility] [address] [place] [address], [place] [phone] * Phosphorus (09/01/2025 8:58 PM EDT) Phosphorus 3.0 2.5 - 4.5 mg/dL LAB CHEMISTRY METHOD 09/01/2025 10:00 PM EDT [facility] Blood Blood sample taken from central line / Unknown Existing Catheter / Unknown 09/01/2025 8:58 PM EDT 09/01/2025 9:36 PM EDT us Marion Stephenson NP LAB BLOOD ORDERABLES Final Resul t Performing Organization Address [facility]/ZIP Co de Phone Number [facility] [address] [place] [address], [place] [phone] * (ABNORMAL) Magnesium (09/01/2025 8:58 PM EDT) Magnesium 1.6(L) 1.9 - 2.6 mg/dL LAB CHEMISTRY METHOD 09/01/2025 10:00 PM EDT [facility] Blood Blood sample taken from central line / Unknown Existing Catheter / Unknown 09/01/2025 8:58 PM EDT 09/01/2025 9:36 PM EDT us Marion Stephenson NP LAB BLOOD ORDERABLES Final Resul t Performing Organization Address [facility]/ZIP Co de Phone Number [facility] [address] [place] [address], [place] [phone] * (ABNORMAL) Basic metabolic panel (09/01/2025 8:58 PM EDT) Sodium 140 133 - 145 mmol/L LAB CHEMISTRY METHOD 09/01/2025 10:00 PM EDT [facility] Potassium 3.5 3.5 - 5.5 mmol/L LAB CHEMISTRY METHOD 09/01/2025 10:00 PM EDT [facility] Chloride 107 96 - 110 mmol/L LAB CHEMISTRY METHOD 09/01/2025 10:00 PM EDT [facility] CO2 24 21 - 32 mmol/L LAB CHEMISTRY METHOD 09/01/2025 10:00 PM EDT [facility] Anion Gap 9 3 - 11 LAB CHEMISTRY METHOD 09/01/2025 10:00 PM EDT [facility] Glucose 94 70 - 100 mg/dL LAB CHEMISTRY METHOD 09/01/2025 10:00 PM EDT [facility] BUN 5 5 - 25 mg/dL LAB CHEMISTRY METHOD 09/01/2025 10:00 PM EDT [facility] Creatinine 0.45(L) 0.50 - 1.10 mg/dL LAB CHEMISTRY METHOD 09/01/2025 10:00 PM EDT [facility] eGFR 142 >=60 mL/min/1. 73m2 LAB CHEMISTRY METHOD 09/01/2025 10:00 PM EDT [facility] Comment:Calculation based on the Chronic Kidney Disease Epidemiology Collaboration (CKD-EPI) equation refit without adjustment for race. BUN/Creatinine Ratio 11.1 LAB CHEMISTRY METHOD 09/01/2025 10:00 PM EDT [facility] Calcium 8.6 8.5 - 10.5 mg/dL LAB CHEMISTRY METHOD 09/01/2025 10:00 PM EDT [facility] Blood Blood sample taken from central line / Unknown Existing Catheter / Unknown 09/01/2025 8:58 PM EDT 09/01/2025 9:36 PM EDT us Marion Stephenson NP LAB BLOOD ORDERABLES Final Resul t [facility] [address] [place] [address], * ECG 12 lead (09/01/2025 8:49 PM EDT) Ventricular Rate ECG 65 BPM GEMUSE Atrial Rate 65 BPM GEMUSE P-R Interval 138 ms GEMUSE QRS Duration 88 ms GEMUSE Q-T Interval 462 ms GEMUSE QTc 480 ms GEMUSE P Wave [place] 38 degrees GEMUSE R [place] 63 degrees GEMUSE T [place] 40 degrees GEMUSE ECG Interpretation Normal sinus rhythm Prolonged QT Abnormal ECG When compared with ECG of 01-SEP-2025 19:03, (unconfirmed) No significant change was found Confirmed by Navdeep LIRA JOHN ([id number]) on 09/03/2025 4:21:25 PM [facility] 09/01/2025 8:49 PM EDT 09/03/2025 4:21 PM EST us Oliva Puri MD ECG ORDERABLES Final Result [facility] * Insert PICC line (09/01/2025 7:58 PM EDT) Narrative Lida Jacques RN - 09/01/2025 7:58 PM EDT Lida Jacques RN 09/01/2025 10:40 PM PICC Line Insertion Procedure Note Procedure: Insertion of 4F Double lumen Bard Provena PowerPICC Lot: [id number] Exp: 2026-06-01 Indications: Vasopressor Procedure Details: Informed consent was obtained for the procedure. Risks of thrombus and infection were discussed. Pre-procedure checklist completed at bedside. Maximum sterile technique was used including antiseptics, cap, gloves, gown, hand hygiene, mask, and sheet. US guidance utilized, vein easily accessed and catheter advanced smoothly upon first attempt. Two wires intact and discarded. 1% Lidocaine 2 ml sc administered. 4F PICC inserted to the Right Basilic vein per hospital protocol. Flushes smoothly with good blood return. Findings: Catheter cut at 42 cm and inserted to 42 cm with 0 cm exposed. Mid upper arm circumference is 32 cm. There were no changes to vital signs at time of insertion. Catheter was flushed with 10 cc NS and sterile CVC dressing with Biopatch applied. Patient tolerated procedure well. 21:00 Reported Vtach on monitor with line flush. CXR ordered and was reviewed with ICU provider. Line was retracted 3 cm with no ectopy noted with multiple flushes and position changes. Recommendations: 3cg confirmation obtained: Tip at cavoatrial junction/May use line PICC Brochure given to patient with teaching instruction. Oliva Puri MD IV THERAPY ORDERABLES Edited Result - Final * ECG 12 lead (09/01/2025 7:03 PM EDT) Ventricular Rate ECG 58 BPM GEMUSE Atrial Rate 58 BPM GEMUSE P-R Interval 122 ms GEMUSE QRS Duration 86 ms GEMUSE Q-T Interval 490 ms GEMUSE QTc 481 ms GEMUSE P Wave [place] 16 degrees GEMUSE R [place] 64 degrees GEMUSE T [place] 41 degrees GEMUSE ECG Interpretation Sinus bradycardia Prolonged QT Abnormal ECG When compared with ECG of 01-SEP-2025 16:54, (unconfirmed) No significant change was found Confirmed by Navdeep LIRA JOHN ([id number]) on 09/03/2025 4:19:36 PM [facility] 09/01/2025 7:03 PM EDT 09/03/2025 4:19 PM EST Jose Brizuela MD ECG ORDERABLES Final Result Performing Organization Address [facility] Co de Phone Number [facility] * ECG 12 lead (09/01/2025 4:54 PM EDT) Ventricular Rate ECG 60 BPM GEMUSE Atrial Rate 60 BPM GEMUSE P-R Interval 116 ms GEMUSE QRS Duration 84 ms GEMUSE Q-T Interval 484 ms GEMUSE QTc 484 ms GEMUSE P Wave [place] 10 degrees GEMUSE R [place] 55 degrees GEMUSE T [place] 30 degrees GEMUSE ECG Interpretation Normal sinus rhythm with sinus arrhythmia Normal ECG When compared with ECG of 01-SEP-2025 15:21, No significant change was found Confirmed by Navdeep LIRA JOHN ([id number]) on 09/03/2025 4:14:10 PM [facility] 09/01/2025 4:54 PM EDT 09/03/2025 4:14 PM EST Jose Brizuela MD ECG ORDERABLES Final Result Performing Organization Address City/State/[facility] Co de Phone Number [facility] * Methadone, urine (09/01/2025 3:26 PM EDT) Methadone Screen, Urine Negative Negative LAB CHEMISTRY METHOD 09/01/2025 4:24 PM EDT [facility] Comment: Assay cutoff 300 ng/mL Semi-quantitative assay for screening purposes only. Unconfirmed screening result should not be used for non-medical purposes. *ALTERNATE METHOD CONFIRMATION DONE UPON REQUEST ONLY* Urine Urine specimen obtained by clean catch procedure / Unknown Non-blood Collection / Unknown 09/01/2025 3:26 PM EDT 09/01/2025 3:45 PM EDT us Jose Brizuela MD LAB URINE ORDERABLES Final Resu lt Performing Organization Address [facility] de Phone Number [facility] [address] [place] [address], [place] [phone] * Phencyclidine, urine (09/01/2025 3:26 PM EDT) PCP Scrn, Ur Negative Negative LAB CHEMISTRY METHOD 09/01/2025 4:24 PM EDT [facility] Comment: Assay cutoff 25 ng/mL Semi-quantitative assay for screening purposes only. Unconfirmed screening result should not be used for non-medical purposes. *ALTERNATE METHOD CONFIRMATION DONE UPON REQUEST ONLY* Urine Urine specimen obtained by clean catch procedure / Unknown Non-blood Collection / Unknown 09/01/2025 3:26 PM EDT 09/01/2025 3:45 PM EDT us Jose Brizuela MD LAB URINE ORDERABLES Final Resu lt Performing Organization Address [facility] Co de Phone Number [facility] [address] [place] [address], [place] [phone] * Buprenorphine screen, urine (09/01/2025 3:26 PM EDT) Buprenorphine Screen Urine Negative Negative LAB CHEMISTRY METHOD 09/01/2025 4:24 PM EDT [facility] Urine Urine specimen obtained by clean catch procedure / Unknown Non-blood Collection / Unknown 09/01/2025 3:26 PM EDT 09/01/2025 3:45 PM EDT Narrative [facility] - 09/01/2025 4:24 PM EDT Assay cutoff 5 ng/mL Semi-quantitative assay for screening purposes only. Unconfirmed screening result should not be used for non-medical purposes. *ALTERNATE METHOD CONFIRMATION DONE UPON REQUEST ONLY* Jose Brizuela MD LAB URINE ORDERABLES Final Resu lt [facility] [address] [place] [address], * Drug abuse screen 8a panel, urine (09/01/2025 3:26 PM EDT) Amphetamine Screen, Ur Negative Negative LAB CHEMISTRY METHOD 09/01/2025 4:24 PM EDT [facility] Comment:Certain OTC medicati ons containing ephedrine, phenylephrine, pseudoephedrine and phenylpropanolamine can cause false positive results. Barbiturate Screen, Ur Negative Negative LAB CHEMISTRY METHOD 09/01/2025 4:24 PM EDT [facility] Benzodiazepine Screen, Ur Negative Negative LAB CHEMISTRY METHOD 09/01/2025 4:24 PM EDT [facility] Cocaine Screen, Ur Negative Negative LAB CHEMISTRY METHOD 09/01/2025 4:24 PM EDT [facility] Opiate Screen, Ur Negative Negative LAB CHEMISTRY METHOD 09/01/2025 4:24 PM EDT [facility] Cannabinoid (THC) Screen, Ur Negative Negative LAB CHEMISTRY METHOD 09/01/2025 4:24 PM EDT [facility] Comment:Specimens from patie nts taking pantoprazole sodium (Protonix) have been shown to produce false positive results. Oxycodone Screen, Ur Negative Negative LAB CHEMISTRY METHOD 09/01/2025 4:24 PM EDT [facility] Fentanyl, Ur Negative Negative LAB CHEMISTRY METHOD 09/01/2025 4:24 PM EDT [facility] Urine Urine specimen obtained by clean catch procedure / Unknown Non-blood Collection / Unknown 09/01/2025 3:26 PM EDT 09/01/2025 3:45 PM EDT Narrative [facility] ([facility]) [facility] - 09/01/2025 4:24 PM EDT Assay cutoffs: Amphetamines 1000 ng/mL Barbiturates 200 ng/mL Benzodiazepines 200 ng/mL Cocaine 300 ng/mL Fentanyl 1 ng/mL Opiates 300 ng/mL Oxycodone 100 ng/mL THC 50 ng/mL Semi-quantitative assay for screening purposes only. Unconfirmed screening result should not be used for non-medical purposes. *ALTERNATE METHOD CONFIRMATION DONE UPON REQUEST ONLY* us Jose Brizuela MD LAB URINE ORDERABLES Final Resu lt [facility] ([facility]) [facility] [address] [place] [address], [place] [phone] * POC , urine manually resulted (09/01/2025 3:23 PM EDT) HCG, Ur POC Negative Negative POC hCG Int QC Pass? Yes Yes Urine Urine specimen obtained by clean catch procedure / Unknown 09/01/2025 3:23 PM EDT Jose Brizuela MD POINT OF CARE TEST ENTER/EDIT O RDERABLES Final Result * ECG 12 lead (09/01/2025 3:21 PM EDT) Ventricular Rate ECG 54 BPM [facility] Atrial Rate 54 BPM GEMUSE P-R Interval 118 ms GEMUSE QRS Duration 80 ms GEMUSE Q-T Interval 480 ms GEMUSE QTc 455 ms GEMUSE P Wave [place] 23 degrees GEMUSE R [place] 55 degrees GEMUSE T [place] 29 degrees GEMUSE ECG Interpretation Sinus bradycardia Otherwise normal ECG When compared with ECG of 01-SEP-2025 13:06, No significant change was found Confirmed by MD Dejuan, Yassine ([id number]) on 09/01/2025 11:15:26 PM [facility] 09/01/2025 3:21 PM EDT 09/01/2025 11:15 PM EDT us Jose Brizuela MD ECG ORDERABLES Final Result [facility] * (ABNORMAL) CBC auto differential (09/01/2025 1:21 PM EDT) Pathologist [facility] WBC 9.1 4.8 - 10.8 K/mcL LAB HEMETOLOGY METHOD 09/01/2025 2:54 PM EDT [facility] RBC 3.80 3.80 - 4.80 M/mcL LAB HEMETOLOGY METHOD 09/01/2025 2:54 PM EDT [facility] Hemoglobin 12.0 11.5 - 16.0 g/dL LAB HEMETOLOGY METHOD 09/01/2025 2:54 PM EDT [facility] Hematocrit 36.1 35.0 - 47.0 % LAB HEMETOLOGY METHOD 09/01/2025 2:54 PM EDT [facility] MCV 94.8 79.0 - 98.0 FL LAB HEMETOLOGY METHOD 09/01/2025 2:54 PM EDT [facility] MCH 31.5 27.0 - 32.0 pcg LAB HEMETOLOGY METHOD 09/01/2025 2:54 PM EDT [facility] MCHC 33.2 32.0 - 37.0 g/dL LAB HEMETOLOGY METHOD 09/01/2025 2:54 PM EDT [facility] RDW 11.9 11.0 - 15.0 % LAB HEMETOLOGY METHOD 09/01/2025 2:54 PM EDT [facility] Platelets 09/01/2025 2:54 PM EDT [facility] Comment:Not measured. Unable to quantitate due to platelet clumping MPV 11.1(H) 7.0 - 11.0 FL LAB HEMETOLOGY METHOD 09/01/2025 2:54 PM EDT [facility] NRBC 0.0 <1.0 % LAB HEMETOLOGY METHOD 09/01/2025 2:54 PM EDT [facility] NRBC Absolute 0.00 <0.10 K/mcL LAB [facility]OLOG[facility] Neutrophils Relative 61.5 % LAB HEMETOLOGY METHOD 09/01/2025 2:54 PM EDT [facility] Lymphocytes Relative 21.0 % LAB HEMETOLOGY METHOD 09/01/2025 2:54 PM EDT [facility] Monocytes Relative 13.1 % LAB HEMETOLOGY METHOD 09/01/2025 2:54 PM [facility] Eosinophils Relative 3.2 % LAB HEMETOLOGY METHOD 09/01/2025 2:54 PM [facility] Basophils Relative 1.0 % LAB HEMETOLOGY METHOD 09/01/2025 2:54 PM T [facility] Immature Granulocytes Relative 0.2 % LAB HEMETOLOGY METHOD 09/01/2025 2:54 PM [facility] Neutrophils Absolute 5.61 1.50 - 7.00 K/mcL LAB HEMETOLOGY METHOD 09/01/2025 2:54 PM T [facility] Lymphocytes Absolute 1.91 1.00 - 5.00 K/mcL LAB HEMETOLOGY METHOD 09/01/2025 2:54 PM EDT [facility] Monocytes Absolute 1.19(H) 0.20 - 1.00 K/mcL LAB HEMETOLOGY METHOD [facility]25 [facility] Eosinophils Absolute 0.29 0.00 - 0.50 K/mcL LAB HEMETOLOGY METHOD 09/01/2025 2:54 PM EDT [facility] Basophils Absolute 0.09 0.00 - 0.20 K/mcL LAB HEMETOLOGY METHOD 09/01/2025 2:54 PM EDT [facility] Immature Granulocytes Absolute 0.02 0.00 - 0.03 K/[facility] LAB HEMETOLOGY METHOD 09/01/2025 2:54 PM EDT [facility] Blood Venous blood specimen / Unknown Venipuncture / Unknown 09/01/2025 1:21 PM EDT 09/01/2025 1:25 PM EDT us Jose Brizuela MD LAB BLOOD ORDERABLES Final Resu lt Performing Organization Address City/[facility]/ZIP Co de Phone Number [facility] [address] [place] [address], [place] [phone] * (ABNORMAL) Salicylate level (09/01/2025 1:21 PM EDT) Salicylate Level <1.7(L) 2.0 - 29.0 mg/dL LAB CHEMISTRY METHOD 09/01/2025 2:19 PM EDT [facility] Blood Venous blood specimen / Unknown Venipuncture / Unknown 09/01/2025 1:21 PM EDT 09/01/2025 1:25 PM EDT us Jose Brizuela MD LAB BLOOD ORDERABLES Final Resu lt Performing Organization Address City/[facility]/ZIP Co de Phone Number [facility] [address] [place] [address], [place] [phone] * (ABNORMAL) Acetaminophen level (09/01/2025 1:21 PM EDT) Acetaminophen Level <2.0(L) 10.0 - 30.0 mcg/mL LAB CHEMISTRY METHOD 09/01/2025 2:19 PM EDT [facility] Blood Venous blood specimen / Unknown Venipuncture / Unknown 09/01/2025 1:21 PM EDT 09/01/2025 1:25 PM EDT us Jose Brizuela MD LAB BLOOD ORDERABLES Final Resu lt [facility] [address] [place] [address], [place] [phone] * Ethanol (09/01/2025 1:21 PM EDT) Pathologist [facility] Ethanol Level <3 0 - 10 mg/dL LAB CHEMISTRY METHOD 09/01/2025 2:19 PM EDT [facility] Blood Venous blood specimen / Unknown Venipuncture / Unknown 09/01/2025 1:21 PM EDT 09/01/2025 1:25 PM EDT us Jose Brizuela MD LAB BLOOD ORDERABLES Final Resu lt Performing Organization Address City/[facility]/ZIP Co de Phone Number [facility] [address] [place] [address], [place] [phone] * (ABNORMAL) Comprehensive metabolic panel (09/01/2025 1:21 PM EDT) [facility] Sodium 136 133 - 145 mmol/L LAB CHEMISTRY METHOD 09/01/2025 2:19 PM EDT [facility] Potassium 4.4 3.5 - 5.5 mmol/L LAB CHEMISTRY METHOD 09/01/2025 2:19 PM EDT [facility] Comment:Hemolysis present Chloride 108 96 - 110 mmol/L LAB CHEMISTRY METHOD 09/01/2025 2:19 PM EDT [facility] CO2 21 21 - 32 mmol/L LAB CHEMISTRY METHOD 09/01/2025 2:19 PM EDT [facility] Anion Gap 7 3 - 11 LAB CHEMISTRY METHOD 09/01/2025 2:19 PM EDT [facility] Glucose 111(H) 70 - 100 mg/dL LAB CHEMISTRY METHOD 09/01/2025 2:19 PM [facility] BUN 10 5 - 25 mg/dL LAB CHEMISTRY METHOD 09/01/2025 2:19 PM [facility] Creatinine 0.55 0.50 - 1.10 mg/dL LAB CHEMISTRY METHOD 09/01/2025 2:19 PM [facility] eGFR 136 >=60 mL/min/1. 73m2 LAB CHEMISTRY METHOD 09/01/2025 2:19 PM [facility] Comment:Calculation based on the Chronic Kidney Disease Epidemiology Collaboration (CKD-EPI) equation refit without adjustment for race. BUN/Creatinine Ratio 18.2 LAB CHEMISTRY METHOD 09/01/2025 2:19 PM [facility] Calcium 9.0 8.5 - 10.5 mg/dL LAB CHEMISTRY METHOD 09/01/2025 2:19 PM [facility] AST (SGOT) 30 10 - 42 unit/L LAB CHEMISTRY METHOD 09/01/2025 2:19 PM [facility] Comment:Hemolysis present ALT (SGPT) 32 10 - 60 unit/L LAB CHEMISTRY METHOD 09/01/2025 2:19 PM [facility] Alkaline Phosphatase 70 42 - 121 unit/L LAB CHEMISTRY METHOD 09/01/2025 2:19 PM [facility] Total Protein 6.4 6.0 - 8.0 g/dL LAB CHEMISTRY METHOD 09/01/2025 2:19 PM [facility] Albumin 3.6 3.2 - 5.0 g/dL LAB CHEMISTRY METHOD 09/01/2025 2:19 PM [facility] Total Bilirubin 0.7 0.0 - 1.4 mg/dL LAB CHEMISTRY METHOD 09/01/2025 2:19 PM [facility] Blood Venous blood specimen / Unknown Venipuncture / Unknown 09/01/2025 1:21 PM EDT 09/01/2025 1:25 PM EDT Jose Brizuela MD LAB BLOOD ORDERABLES Final Resu lt [facility] [address] [place] [address], [place] [phone] * ECG 12 lead (09/01/2025 1:06 PM EDT) Ventricular Rate ECG 61 BPM GEMUSE Atrial Rate 61 BPM GEMUSE P-R Interval 132 ms GEMUSE QRS Duration 92 ms GEMUSE Q-T Interval 432 ms GEMUSE QTc 434 ms GEMUSE P Wave [place] 7 degrees GEMUSE R [place] 48 degrees GEMUSE T [place] 22 degrees GEMUSE ECG Interpretation Normal sinus rhythm with sinus arrhythmia Normal ECG No previous ECGs available Confirmed by MD Zaidi Christopher ([id number]) on 09/01/2025 11:13:38 PM GEMUSE 09/01/2025 1:06 PM EDT 09/01/2025 11:13 PM EDT Jose Brizuela MD ECG ORDERABLES Final Result GEMUSE * [facility] CRITICAL CARE 30-74 MINUTES (09/01/2025 12:35 PM EDT) Narrative Jose Brizuela MD - 09/01/2025 12:35 PM EDT Jose Brizuela MD 09/01/2025 3:32 PM Critical Care Performed by: Jose Brizuela MD Authorized by: Jose Brizuela MD Critical care provider statement: Critical care time (minutes): 75 Total face to face critical care time (minutes): 75 Critical care time was exclusive of: Separately billable procedures and treating other patients Critical care was necessary to treat or prevent imminent or life-threatening deterioration of the following conditions: Shock (Toxic ingestion) Critical care was time spent personally by me on the following activities: Development of treatment plan with patient or surrogate, discussions with consultants, evaluation of patient's response to treatment, examination of patient, ordering and performing treatments and interventions, ordering and review of laboratory studies and re-evaluation of patient's condition Comments: Patient required critical care due to life-threatening hypotension from toxic ingestion necessitating vasopressors and ICU admission. us Jose Brizuela MD IN CLINIC/BEDSIDE ORDERABLES Fi nal Result documented in this encounter Visit Diagnoses Diagnosis Mood disorder (CMS/HCC V24)- Primary Unspecified episodic mood disorder Ingestion of toxic substance Suicidal ideation Ingestion of toxic substance documented in this encounter Admitting Diagnoses Diagnosis Ingestion of toxic substance documented in this encounter Administered Medications Inactive Administered Medications - up to 3 most recent administrations Medication Order MAR Action Action Date Dose Rate Site alteplase (CATHFLO ACTIVASE) injection 1 mg 1 mg, intra-catheter, Every 2 hours PRN, Lumen 2, Starting on Thu09/03/25 at 1332, For 2 doses, -Catheter Clearance - PICC -Allow dwell time of 30 - 60 minutes -Attempt to aspirate blood from catheter -If unable to aspirate, allow to dwell for 60 - 90 additional minutes (120 minutes total) -May repeat once in 120 minutes if line not patent Dilute each 2 mg vial with 2.2 mL sterile water to give 1 mg/mL final concentration. Swirl gently to mix; do not shake., Alteplase Indication: Catheter Clearance Given 09/03/2025 4:02 PM EST 1 mg dextrose 5 % lactated ringers infusion 50 mL/hr, intravenous, Continuous, Starting on Thu09/01/25 at 1713 Rate/Dose Verify 09/02/2025 3:00 PM EDT 50 mL/hr 50 mL/hr Rate/Dose Verify 09/02/2025 2:00 PM EDT 50 mL/hr 50 mL/h r Rate/Dose Verify 09/02/2025 1:00 PM EDT 50 mL/hr 50 mL/h r enoxaparin (LOVENOX) injection 40 mg 40 mg, subcutaneous, Every 24 hours scheduled, First dose on Thu09/01/25 at 1620, Indication: VTE/PE Prophylaxis Given 09/05/2025 8:52 AM EST 40 mg Right Lower Abdomen Given 09/04/2025 9:12 AM EST 40 mg Ri ght Upper Abdomen Given 09/02/2025 8:17 AM EDT 40 mg Le ft Lower Abdomen FLUoxetine (PROzac) capsule 20 mg 20 mg, oral, Daily, First dose on Thu09/04/25 at 1030 Given 09/05/2025 8:52 AM EST 20 mg Given 09/04/2025 11:19 AM EST 20 mg lactated Ringer's bolus 1,000 mL 1,000 mL, intravenous, Once, On Thu09/01/25 at 1415, For 1 dose New Bag 09/01/2025 2:27 PM EDT 1,000 mL lactated Ringer's bolus 2,000 mL 2,000 mL, intravenous, Once, On Thu09/01/25 at 1248, For 1 dose New 09/01/2025 12:56 PM EDT 2,000 mL LORazepam (ATIVAN) tablet 0.5 mg 0.5 mg, oral, Every 6 hours PRN, anxiety, Starting on Thu09/03/25 at 1334 magnesium oxide (MAG-OX) tablet 200 mg 200 mg, oral, Daily, First dose on Thu09/04/25 at 0900 Given 09/05/2025 8:52 AM EST 200 mg Given 09/04/2025 9:11 AM EST 200 mg magnesium sulfate 2 gram/50 mL (4 %) IVPB - ADS Override Pull Starting on Thu09/03/25 at 0617, For 1 dose, Created by cabinet override magnesium sulfate 2 gram/50 mL (4 %) IVPB 2 g 2 g, intravenous, at 25 mL/hr, Administer over 2 Hours, Once, On Thu09/01/25 at 2230, For 1 dose New 09/01/2025 10:52 PM EDT 2 g 25 mL/hr magnesium sulfate 2 gram/50 mL (4 %) IVPB 2 g 2 g, intravenous, at 25 mL/hr, Administer over 2 Hours, Once, On Thu09/03/25 at 0630, For 1 dose New 09/03/2025 6:31 AM EST 2 g 25 mL/hr midodrine (PROAMATINE) tablet 10 mg 10 mg, oral, 3 times daily before meals, First dose on Thu09/01/25 at 1630 Given 09/01/2025 4:40 PM EDT 10 mg midodrine (PROAMATINE) tablet 10 mg 10 mg, oral, 3 times daily before meals, First dose (after last modification) on 09/02/25 at 1630, Hold for sbp>100 Given 09/04/2025 7:55 AM EST 10 mg Given 09/03/2025 4:40 PM EST 10 mg Given 09/03/2025 12:47 PM EST 10 mg midodrine (PROAMATINE) tablet 5 mg 5 mg, oral, 3 times daily before meals, First dose on Thu09/01/25 at 1713 Given 09/02/2025 12:36 PM EDT 5 mg Given 09/02/2025 8:17 AM EDT 5 mg midodrine (PROAMATINE) tablet 5 mg 5 mg, oral, Once, On 09/02/25 at 2300, For 1 dose Given 09/02/2025 10:57 PM EDT 5 mg midodrine (PROAMATINE) tablet 5 mg 5 mg, oral, 3 times daily before meals, First dose (after last modification) on 09/04/25 at 1630, Hold for sbp>100 Given 09/04/2025 4:46 PM EST 5 mg norepinephrine (LEVOPHED) infusion 8 mg/250 mL (premix) 0.01-0.99 mcg/kg/min 69.4 kg (1.3013-128.8238 mL/hr, rounded to 1.3-128.82 mL/hr), intravenous, Continuous, Starting on Thu09/01/25 at 1525, GOAL EFFECT: SBP GREATER than 90 mmHg or MAP GREATER than 65 mmHg INITIAL RATE: 0.01 mcg/kg/min USUAL DOSE RANGE: 0.01 - 0.99 mcg/kg/min TITRATION DOSE: 0.02 mcg/kg/min TITRATION FREQUENCY: 1 min CONTACT PRESCRIBER: - If dose exceeds 0.4 mcg/kg/min -HR LESS than 60 BPM -HR GREATER than 120 BPM -SBP LESS than 80 mmHg -SBP GREATER than 140 mmHg *Individual cases may deviate from parameters and would REQUIRE an order from the provider documented in the patient record* premix bag Rate/Dose Verify 09/03/2025 8:00 AM EST 0.01 mcg/kg/min 1.3 mL/hr Rate/Dose Verify 09/03/2025 7:00 AM EST 0.01 mcg/kg/min 1. 3 mL/hr Rate/Dose Change 09/03/2025 6:32 AM EST 0.01 mcg/kg/min 1. 3 mL/hr pantoprazole (PROTONIX) injection 40 mg 40 mg, intravenous, Administer over 2 Minutes, Every 24 hours, First dose on Thu09/01/25 at 1713, Pantroprazole - IV push: Reconstitute powder for injection with 10 mL NS; final concentration: 4 mg/mL., Indication for IV Push Pantoprazole? Stress Ulcer Prophylaxis for patients with STRICT NPO status AND contraindication to H2RA Given 09/04/2025 4:46 PM EST 40 mg Given 09/01/2025 5:46 PM EDT 40 mg potassium chloride 20 mEq/100 mL IVPB (premix) 20 mEq 20 mEq, intravenous, at 100 mL/hr, Administer over 1 Hours, Once, On Thu09/01/25 at 2230, For 1 dose, For central line administration only. New Bag 09/01/2025 10:53 PM EDT 20 mEq 100 mL/hr documented in this encounter Discontinued Medications Medication Sig Discontinue Reason Start Date End Da te citalopram (CeleXA) 40 mg tablet Take 1 tablet (40 mg total) by mouth 1 (one) time each day. Stop Taking at Discharge 07/13/2025 09/05/2025 cloNIDine (CATAPRES) 0.1 mg tablet Take 1 tablet (0.1 mg total) by mouth at bedtime. Stop Taking at Discharge 08/31/2025 09/05/2025 documented as of this encounter Historical Medications * This list may reflect changes made after this encounter. cloNIDine (CATAPRES) 0.1 mg tablet Take 1 tablet (0.1 mg total) by mouth at bedtime. 08/31/2025 09/05/2025 citalopram (CeleXA) 40 mg tablet Take 1 tablet (40 mg total) by mouth 1 (one) time each day. 07/13/2025 09/05/2025 added in this encounter Active and Recently Administered Medications Due to Daylight Saving Time, this section may contain times in both EDT and EST. Scheduled Medication Order 09/03/2025 09/04/2025 09/05/2025 enoxaparin (LOVENOX) injection 40 mg 40 mg, subcutaneous, Every 24 hours scheduled, First dose on Thu09/01/25 at 1620, Indication: VTE/PE Prophylaxis 1036 (Not Given - Provider: Manjinder Tavera RN - Reason: Other - Comment: pt. ambulating in the room and the unit) 0912 (Given - Provider: Miracle Low RN) 0852 (Given - Provider: Stacie Levin MA) FLUoxetine (PROzac) capsule 20 mg 20 mg, oral, Daily, First dose on 09/04/25 at 1030 1119 (Given - Provider: Miracle Low RN) 0852 (Given - Provider: Stacie Levin MA) magnesium oxide (MAG-OX) tablet 200 mg 200 mg, oral, Daily, First dose on Thu09/04/25 at 0900 0911 (Given - Provider: Miracle Low RN) 0852 (Given - Provider: Stacie Levin MA) magnesium sulfate 2 gram/50 mL (4 %) IVPB 2 g (COMPLETED) 2 g, intravenous, at 25 mL/hr, Administer over 2 Hours, Once, On Thu09/03/25 at 0630, For 1 dose 0631 (New Bag - Provider: Mali Harris RN)0809 (Stopped - Provider: Manjinder Tavera RN) midodrine (PROAMATINE) tablet 10 mg (CANCELED) 10 mg, oral, 3 times daily before meals, First dose (after last modification) on Thu09/02/25 at 1630, Hold for sbp>100 0631 (Given - Provider: Mali Harris RN)1247 (Given - Provider: Manjinder Tavera RN - Comment: Psych a t the bedside)1640 (Given - Provider: Manjinder Tavera RN) 0755 (Given - Provider: Miracle Low, ABY)1120 (Not Given - Provider: Miracle Low RN - Reason: Other - Comment: hold per MD) midodrine (PROAMATINE) tablet 5 mg 5 mg, oral, 3 times daily before meals, First dose (after last modification) on 09/04/25 at 1630, Hold for sbp>100 1646 (Given - Provider: Alireza Torres RN) 0849 (Not Given - Provider: Stacie Levin MA - Reason: Order parameters not met - Comment: bp 109/71)1156 (Not Given - Provider: Stacie Levin MA - Reason: Order parameters not met - Comment: BP 110/79) pantoprazole (PROTONIX) injection 40 mg 40 mg, intravenous, Administer over 2 Minutes, Every 24 hours, First dose on Thu09/01/25 at 1713, Pantroprazole - IV push: Reconstitute powder for injection with 10 mL NS; final concentration: 4 mg/mL., Indication for IV Push Pantoprazole? Stress Ulcer Prophylaxis for patients with STRICT NPO status AND contraindication to H2RA 1640 (Not Given - Provider: Manjinder Tavera RN - Reason: Other - Comment: pt. has a diet, eats well) 1646 (Given - Provider: Alireza Torres RN) Continuous Medication Order 09/03/2025 09/04/2025 09/05/2025 norepinephrine (LEVOPHED) infusion 8 mg/250 mL (premix) (CANCELED) 0.01-0.99 mcg/kg/min 69.4 kg (1.3013-128.8238 mL/hr, rounded to 1.3-128.82 mL/hr), intravenous, Continuous, Starting on Thu09/01/25 at 1525, GOAL EFFECT: SBP GREATER than 90 mmHg or MAP GREATER than 65 mmHg INITIAL RATE: 0.01 mcg/kg/min USUAL DOSE RANGE: 0.01 - 0.99 mcg/kg/min TITRATION DOSE: 0.02 mcg/kg/min TITRATION FREQUENCY: 1 min CONTACT PRESCRIBER: - If dose exceeds 0.4 mcg/kg/min -HR LESS than 60 BPM -HR GREATER than 120 BPM -SBP LESS than 80 mmHg -SBP GREATER than 140 mmHg *Individual cases may deviate from parameters and would REQUIRE an order from the provider documented in the patient record* premix bag 0000 (Rate/Dose Change - Provider: Mali Harris RN)0100 (Paused - Provider: Mali Harris RN)0255 (Restarted - Provider: Mali Harris RN)0415 (Rate/Dose Change - Provider: Mali Harris RN)0632 (Rate/Dose Change - Provider: Mali Harris RN)0700 (Rate/Dose Verify - Provider: Manjinder Tavera RN)0800 (Rate/Dose Verify - Provider: Manjinedr Tavera RN)0820 (Stopped - Provider: Manjinder Tavera RN)0900 (Stopped - Provider: Manjinder Tavera RN)1000 (Stopped - Provider: Manjinder Tavera RN)1200 (Stopped - Provider: Manjinder Tavera RN)1236 (Stopped - Provider: Manjinder Tavera RN)1300 (Stopped - Provider: Manjinder Tavera RN)1400 (Stopped - Provider: Manjinder Tavera RN)1500 (Stopped - Provider: Manjinder Tavera RN)1600 (Stopped - Provider: Manjinder Tavera RN)1700 (Stopped - Provider: Manjinder Tavera RN)1800 (Stopped - Provider: Manjinder Tavera RN) PRN Medication Order 09/03/2025 09/04/2025 09/05/2025 alteplase (CATHFLO ACTIVASE) injection 1 mg 1 mg, intra-catheter, Every 2 hours PRN, Lumen 2, Starting on 09/03/25 at 1332, For 2 doses, -Catheter Clearance - PICC -Allow dwell time of 30 - 60 minutes -Attempt to aspirate blood from catheter -If unable to aspirate, allow to dwell for 60 - 90 additional minutes (120 minutes total) -May repeat once in 120 minutes if line not patent Dilute each 2 mg vial with 2.2 mL sterile water to give 1 mg/mL final concentration. Swirl gently to mix; do not shake., Alteplase Indication: Catheter Clearance 1602 (Given - Provider: Manjinder Tavera RN) LORazepam (ATIVAN) tablet 0.5 mg 0.5 mg, oral, Every 6 hours PRN, anxiety, Starting on 09/03/25 at 1334 documented in this encounter Orders Medications Ordered That Sukh ht Not Have Been Administered Count Last Ordered Date First Ordered Date flumazeniL (ROMAZICON) injection 0.2 mg 1 1 11/03/2024 LORazepam (ATIVAN) tablet 0.5 mg 1 09/03/20 25 Lab Orders Without Results Count Last Ordered D ate First Ordered Date POCT GLUCOSE, BLOOD 10 09/04/2025 09/01/20 25 Nursing Count Last Ordered Date First Orde red Date VITAL SIGNS 1 09/01/2025 Consult Count Last Ordered Date First Orde red Date IP CONSULT TO SOCIAL WORK 1 09/02/2025 Inpatient consult to Psychiatry 1 Admission Count Last Ordered Date First Orde red Date ADMIT TO INPATIENT 1 09/01/2025 Transfer Count Last Ordered Date First Orde red Date TRANSFER PATIENT TO NEW UNIT 1 09/04/2025 ED TO FLOOR BED REQUEST 1 09/01/2025 Discharge Count Last Ordered Date First Orde red Date DISCHARGE PATIENT 1 09/05/2025 documented in this encounter Care Teams Wastewater Engineer Relationship Specialty Start Date End Date Kev Canales MD [facility] [facility] [place] [address] PCP - General Pediatric Endocrinology 09/01/25 documented as of this encounter
--- OUTSIDE RECORDS SUMMARY | 2025-09-05 | XMS_ITS | Encounter Summary ---
Author Organization [facility] Address [address] [place] [address] Phone Care Team Providers Care Hospital Cook Name Role Phone Kev Canales MD Primary Care Provider Reason for Visit * Reason Comments Inpatient Admission Encounter Details Date Type Department Care Team ([facility] st Contact Info) Description 09/05/2025 - Present Hospital Encounter [facility] - Patient Ping Social History Tobacco Use Types Packs/Day Years Used Date Smoking Tobacco: Never Smokeless Tobacco: Never Comments:Never Smoker Alcohol Use Standard Drinks/Week Comments Never 0 (1 standard drink = 0.6 oz pur e alcohol) Hunger/Food Answer Date Recorded In the last 12 months, did y ou or your family ever eat less than you felt you should because there wasn't enough money for food? No 07/11/2025 Stable Housing Answer Date Recorded Are you worried that in the next 2 months you may not have stable housing? No 07/11/2025 Transportation Concerns Answer Date Rec orded In the last 12 months, have you or your family ever had to go without healthcare because you didn't have a way to get there? No 07/11/2025 Hazards in Home Answer Date Recorded Think about the place you li ve. Do you have problems with any of the following? Pests (mice or roaches), mold, no/not working smoke detectors, water leaks, no window guards. No 2024 Financing Utilities Answer Date Recorde d In the last 12 months, has t he electric, gas, oil, or water company threatened to shut off your services in your home? No 07/11/2025 Safety at Home Answer Date Recorded Are you or your family worried about feeling saf e in your home? No 07/11/2025 Outside Support Answer Date Recorded Do you feel that you need mo re support from other people or programs to help you care for yourself or your family? No 07/11/2025 Understanding Health Concerns Answer Da te Recorded Do you need help understandi ng your or your child's healthcare needs (diagnosis, medications, plan, etc.)? No 07/11/2025 Financing Health Concerns Answer Date R ecorded In the last 12 months, was t here a time when your child needed to see a doctor or get medications or supplies but could not because of cost? No 07/11/2025 Missing School or Work Answer Date Fitz rded Did you or your child miss s chool or work because of a health problem that could have been avoided? No 07/11/2025 Child Education Answer Date Recorded Do you have concerns about y our/your child's learning or behavior in school, preschool, or daycare? No 07/11/2025 Comments No Sex and Gender Information Value Date Recorded Sex Assigned at Female 06/01/2020 11:38 PM EDT Legal Sex Female 6:29 PM EDT Gender Identity Female 06/01/2020 11:38 PM EDT Sexual Orientation Bisexual 06/01/2020 11 :38 PM EDT documented as of this encounter Plan of Treatment Upcoming Encounters Date Type Department Care Team (Late st Contact Info) Description 01/19/2026 3:15 PM EDT Office Visit [facility] [address] [place] [address] [place] [id number] Kev Canales MD [address] [place] [address] [place] [id number] 07/23/2026 3:30 PM EDT Office Visit [facility] [address] [place] [address] [place] [address] Kev Canales MD [address] [place] [address] [place] [id number] documented as of this encounter Visit Diagnoses Not on filedocumented in this encounter Care Teams Hospital Cook Relationship Specialty Start Date End Date Kev Canales MD [address] [place] [address] [place] [id number] PCP - General Pediatrics 02/22/19 documented as of this encounter
[2025-09-05 15:08] VITALS: BP 135/82; PULSE 88; RESP 18; TEMP 37.2; O2SAT 99
--- NOTE | 2025-09-05 15:12 | PC.ADMIT ---
Addendum entered by Jojo Patel RN 09/05/25 17:00: patient admitted with no cell phone/no belongings Addendum entered by Jojo Patel RN 09/05/25 16:52: patient name of choice is Juliette. Original Note: Pt is a 19-y/o single female on the autism spectrum who was admitted to from [facility] on a CV following an intentional dose on home meds (8 clonidines, 8 hydroxyzines, + unknown amount of antidepressant). Pt was hospitalized in the ICU at [facility]. The intentional overdose was following conflict with peers and pt feeling depressed. During the admission assessment pt is tearful and regretful about the attempt. Pt states she has a hx of being bullied at school. 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 Parents are supportive and concerned. Pt has attempted suicide before about 5 years ago following similar issues. Pt declined the flu shot as she has already been vaccinated, denies SI/HI/AH/VH and does not use any substances or tobacco. No allergies other than lactose intolerant. Signed most ROIs .
--- OUTSIDE RECORDS SUMMARY | 2025-09-05 16:09 | XMS_ITS | Clinical Summary ---
Author Organization [facility] Address [address] [place] [address] Phone Care Team Providers Care Head Knitting Machine Fixer Name Role Phone Kev Canales MD Primary Care Provider [phone] Allergies Active Allergy Reactions Criticality Noted Date Comments Lactose 09/03/2025 Pt. Stated she is lactose intolerance Medications FLUoxetine (PROzac) 20 mg capsule Take 1 capsule (20 mg total) by mouth 1 (one) time each day. 5 09/06/20 26 Active citalopram (CeleXA) 40 mg tablet Take 1 tablet (40 mg total) by mouth 1 (one) time each day. 5 09/05/20 25 Discontinu ed(Stop Taking at Discharge) cloNIDine (CATAPRES) 0.1 mg tablet Take 1 tablet (0.1 mg total) by mouth at bedtime. 5 09/05/20 25 Discontinu ed(Stop Taking at Discharge) Active Problems Problem Noted Date Diagnosed Date Mood disorder (CMS/HCC V24) 09/03/2025 Ingestion of toxic substance 09/01/2025 Encounters Date Type Department Care Team Description 09/01/2025 12:41 PM EDT - 09/05/2025 12:55 PM EST Hospital Encounter [facility] [address] [place] [address] Jose Brizuela MD Loiacono, Laurie, MD Bonacum, Julia T, MD Mohani, Priya, MD Ingestion of toxic substance (Primary Dx); Suicidal ideation [facility]charge [facility]position[facility] Last 3 Months Social History Tobacco Use Types Packs/Day Years [...] for your loved ones. For example, child welfare manager or elderly care for an older adult? [...] on file Sexual Orientation Not on file Obstetrics History Growth Chart Information Age Height Weight [id number] th Percentile BMI Percentile Head Circum Head Circum Percentile Date 19 years 157.5 cm (5' 2 ) 69.4 kg (153 lb) 89.43%* 2024 * [facility] (Girls, 2-20 Years) Last Filed Vital Signs Vital Sign Reading [...] Mass Index 27.98 09/01/2025 12:39 PM EDT Plan of Treatment Health Maintenance Due Date Last Done Comments Gonorrhea/Chlamydia Screening 2005 Meningococcal B Vaccine (1 of 2 - Standard) 2021 Depression Screening 11/02/2024 HIV Screening 09/01/2025 Hepatitis C Screening 09/01/2025 Annual Well Child Visit (3-21 years old) 07/12/2026 07/12/2025, 07/01/2024, 06/29/2023, Additional history exists Social Influencers of Health Screening 09/01/2026 09/01/2025 DTaP,Tdap,and Td Vaccines (7 - Td or Tdap) 02/23/2027 02/23/2017, 10/09/2010, 03/09/2007, Additional history exists RSV Immunization Adult Patients (1 - 1-dose 75+ series) 2080 Hepatitis B Vaccines Completed 03/16/2006, 01/14/2006, 2005, Additional history exists HIB Vaccines Completed 03/09/2007, 03/02, 01/14/2006, Additional history exists Hepatitis A Vaccines Completed 09/13/2007, 09/18/20 Pneumococcal Vaccine: Pediatrics (0 to 5 Years) and At-Risk Patients (6 to 49 Years) Completed 01/08/2009, 01/07/2007, 03/16/2006, Additional history exists IPV Vaccines Completed 10/09/2010, 03/02, 01/14/2006, Additional history exists MMR Vaccines Completed 10/09/2010, 09/18/2006 Varicella Vaccines Completed 10/09/2010, 09/18/2006 HPV Vaccines Completed 02/24/2018, 02/23/2017 Meningococcal ACWY Vaccine Completed 06/29, 06/27/2022, 02/23/2017 Influenza Vaccine Completed 07/12/2025, , 07/28/2023, Additional history exists COVID-19 Vaccine Completed 07/21/2025, 01/2024, 07/28/2023, Additional history exists RSV Immunization Patients Under 20 months Aged Out No longer eligible based on patient's age to complete this topic Procedures Procedure Name Priority Date/Time Associated Diagnosis Comments ECG 12-LEAD Routine 09/04/2025 3:46 PM EST CBC WITH AUTO DIFFERENTIAL Routine 09/04/2025 4:09 AM EST BASIC METABOLIC PANEL Routine 09/04/2025 4:09 AM EST PHOSPHORUS Routine 09/04/2025 4:09 AM EST MAGNESIUM Routine 09/04/2025 4:09 AM EST CALCIUM, IONIZED Routine 09/04/2025 4:09 AM EST CBC AND DIFFERENTIAL Routine 09/04/2025 4:09 AM EST POCT GLUCOSE BLOOD Routine 09/03/2025 11 :06 PM EST POCT GLUCOSE BLOOD Routine 09/03/2025 4: 38 PM EST LAVENDER - EDTA Routine 09/03/2025 12:36 PM EST EXTRA TUBES Routine 09/03/2025 12:36 PM EST PHOSPHORUS STAT 09/03/2025 12:36 PM EST MAGNESIUM STAT 09/03/2025 12:36 PM EST BASIC METABOLIC PANEL STAT 09/03/2025 12:36 PM EST CBC WITH AUTO DIFFERENTIAL Routine 09/03/2025 4:50 AM EST BASIC METABOLIC PANEL Routine 09/03/2025 4:50 AM EST PHOSPHORUS Routine 09/03/2025 4:50 AM EST MAGNESIUM Routine 09/03/2025 4:50 AM EST CALCIUM, IONIZED Routine 09/03/2025 4:50 AM EST CBC AND DIFFERENTIAL Routine 09/03/2025 4:50 AM EST HEPATIC FUNCTION PANEL Routine 4:50 AM EST POCT GLUCOSE BLOOD Routine 09/02/2025 11 :40 PM EDT POCT GLUCOSE BLOOD Routine 09/02/2025 4: 13 PM EDT CBC WITH AUTO DIFFERENTIAL Routine 09/02/2025 4:12 AM EDT HEPATIC FUNCTION PANEL Routine 4:12 AM EDT CALCIUM, IONIZED Routine 09/02/2025 4:12 AM EDT PHOSPHORUS Routine 09/02/2025 4:12 AM EDT MAGNESIUM Routine 09/02/2025 4:12 AM EDT BASIC METABOLIC PANEL Routine 09/02/2025 4:12 AM EDT CBC AND DIFFERENTIAL Routine 09/02/2025 4:12 AM EDT ECG 12-LEAD Routine 09/01/2025 11:29 PM EDT POCT GLUCOSE BLOOD Routine 09/01/2025 11 :21 PM EDT XR CHEST 1 VIEW STAT 09/01/2025 9:07 PM EDT CALCIUM, IONIZED STAT 09/01/2025 8:58 PM EDT PHOSPHORUS STAT 09/01/2025 8:58 PM EDT MAGNESIUM STAT 09/01/2025 8:58 PM EDT BASIC METABOLIC PANEL STAT 09/01/2025 8:58 PM EDT ECG 12-LEAD Routine 09/01/2025 8:49 PM EDT INSERT PICC LINE Routine 09/01/2025 7:58 PM EDT ECG 12-LEAD STAT 09/01/2025 7:03 PM EDT ECG 12-LEAD STAT 09/01/2025 4:54 PM EDT METHADONE SCREEN, URINE STAT 09/01/2025 3:26 PM EDT PHENCYCLIDINE, URINE STAT 09/01/2025 3:26 PM EDT BUPRENORPHINE SCREEN, URINE STAT 09/01/2025 3:26 PM EDT DRUG ABUSE SCREEN 8A PANEL, URINE STAT 09/01/2025 3:26 PM EDT POC , URINE DIAGNOSTIC STAT 09/01/2025 3:23 PM EDT ECG 12-LEAD STAT 09/01/2025 3:21 PM EDT CBC WITH AUTO DIFFERENTIAL STAT 09/01/2025 1:21 PM EDT SALICYLATE LEVEL STAT 09/01/2025 1:21 PM EDT ACETAMINOPHEN LEVEL STAT 09/01/2025 1 :21 PM EDT ETHANOL STAT 09/01/2025 1:21 PM EDT COMPREHENSIVE METABOLIC PANEL STAT 09/01/2025 1:21 PM EDT CBC AND DIFFERENTIAL STAT 09/01/2025 1:21 PM EDT ECG 12-LEAD STAT 09/01/2025 1:06 PM EDT [facility] 30-74 MINUTES Routine 09/01/2025 12:35 PM EDT from Last 3 Months Results * ECG 12 lead (09/04/2025 3:46 PM EST) Only the most recent of7 resultswithin the time period is included. Ventricular Rate ECG 114 BPM GEMUSE Atrial Rate 114 BPM GEMUSE P-R Interval 130 ms GEMUSE QRS Duration 78 ms GEMUSE Q-T Interval 334 ms GEMUSE QTc 460 ms GEMUSE P Wave [place] 35 degrees GEMUSE R [place] 31 degrees GEMUSE T [place] 1 degrees GEMUSE ECG Interpretation Sinus tachycardia [...] CBC auto differential (09/04/2025 4:09 AM EST) Only the most recent of4 resultswithin the time period is included. [facility] Signature WBC 10.9(H) 4.8 - 10.8 K/mcL LAB HEMETOLOGY METHOD 09/04/2025 4:21 AM [facility] RBC 3.90 3.80 - 4.80 M/mcL LAB HEMETOLOGY METHOD 09/04/2025 4:21 AM [facility] Hemoglobin 12.1 11.5 - 16.0 g/dL LAB HEMETOLOGY METHOD 09/04/2025 4:21 AM [facility] Hematocrit 36.4 35.0 - 47.0 % LAB HEMETOLOGY METHOD 09/04/2025 4:21 AM [facility] MCV 93.3 79.0 - 98.0 FL LAB HEMETOLOGY METHOD 09/04/2025 4:21 AM [facility] MCH 31.0 27.0 - 32.0 pcg LAB HEMETOLOGY METHOD 09/04/2025 4:21 AM [facility] MCHC 33.2 32.0 - 37.0 g/dL LAB HEMETOLOGY METHOD 09/04/2025 4:21 AM [facility] RDW 12.0 11.0 - 15.0 % LAB HEMETOLOGY METHOD 09/04/2025 4:21 AM [facility] Platelets 249 130 - 400 K/mcL LAB HEMETOLOGY METHOD 09/04/2025 4:21 AM [facility] MPV 9.1 7.0 - 11.0 FL LAB HEMETOLOGY METHOD 09/04/2025 4:21 AM [facility] NRBC 0.0 <1.0 % LAB HEMETOLOGY METHOD 09/04/2025 4:21 AM [facility] NRBC Absolute 0.00 <0.10 K/mcL LAB HEMETOLOGY METHOD 09/04/2025 4:21 AM [facility] Neutrophils Relative 57.5 % LAB HEMETOLOGY METHOD 09/04/2025 4:21 AM [facility] Lymphocytes Relative 26.9 % LAB HEMETOLOGY METHOD 09/04/2025 4:21 AM [facility] Monocytes Relative 11.1 % LAB HEMETOLOGY METHOD 09/04/2025 4:21 AM [facility] Eosinophils Relative 3.5 % LAB HEMETOLOGY METHOD 09/04/2025 4:21 AM [facility] Basophils Relative 0.6 % LAB HEMETOLOGY METHOD 09/04/2025 4:21 AM [facility] Immature Granulocytes Relative 0.4 % LAB HEMETOLOGY METHOD 09/04/2025 4:21 AM [facility] Neutrophils Absolute 6.29 1.50 - 7.00 K/mcL LAB HEMETOLOGY METHOD 09/04/2025 4:21 AM [facility] Lymphocytes Absolute 2.94 1.00 - 5.00 K/mcL LAB HEMETOLOGY METHOD 09/04/2025 4:21 AM [facility] Monocytes Absolute 1.21(H) 0.20 - 1.00 K/mcL LAB HEMETOLOGY METHOD 09/04/2025 4:21 AM [facility] Eosinophils Absolute 0.38 0.00 - 0.50 K/mcL LAB HEMETOLOGY METHOD 09/04/2025 4:21 AM [facility] Basophils Absolute 0.07 0.00 - 0.20 K/mcL LAB HEMETOLOGY METHOD 09/04/2025 4:21 AM [facility] Immature Granulocytes Absolute 0.04(H) 0.00 - 0.03 K/mcL LAB HEMETOLOGY METHOD 09/04/2025 4:21 AM [facility] Blood Venous blood specimen / Unknown Venipuncture / Unknown 09/04/2025 4:09 AM EST 09/04/2025 4:16 AM EST us Oliva Puri MD LAB BLOOD ORDERABLES Final Re sult Performing Organization Address City/[facility]/ZIP Co de Phone Number [facility] [address] [place] [address], [place] [phone] * Phosphorus (09/04/2025 4:09 AM EST) Only the most recent of5 resultswithin the time period is included. Phosphorus 3.9 2.5 - 4.5 mg/dL LAB CHEMISTRY METHOD 09/04/2025 4:50 AM EST [facility] Blood Venous blood specimen / Unknown Venipuncture / Unknown 09/04/2025 4:09 AM EST 09/04/2025 4:16 AM EST us Oliva Puri MD LAB BLOOD ORDERABLES Final Re sult Performing Organization Address [facility]/ZIP Co de Phone Number [facility] [address] [place] [address], [place] [phone] * (ABNORMAL) Magnesium (09/04/2025 4:09 AM EST) Only the most recent of5 resultswithin the time period is included. Magnesium 1.8(L) 1.9 - 2.6 mg/dL LAB CHEMISTRY METHOD 09/04/2025 4:50 AM EST [facility] Blood Venous blood specimen / Unknown Venipuncture / Unknown 09/04/2025 4:09 AM EST 09/04/2025 4:16 AM EST us Oliva Puri MD LAB BLOOD ORDERABLES Final Re sult Performing Organization Address City/[facility]/ZIP Co de Phone Number [facility] [address] [place] [address], [place] [phone] * Calcium, ionized (09/04/2025 4:09 AM EST) Only the most recent of4 resultswithin the time period is included. Pathologist [facility] Calcium Ionized 4.90 4.50 - 5.30 mg/dL 09/04/2025 4:26 AM [facility] Blood Venous blood specimen / Unknown Venipuncture / Unknown 09/04/2025 4:09 AM EST 09/04/2025 4:16 AM EST us Oliva Puri MD LAB BLOOD ORDERABLES Final Re sult [facility] [address] [place] [address], * (ABNORMAL) Basic metabolic panel (09/04/2025 4:09 AM EST) Only the most recent of5 resultswithin the time period is included. [facility] Sodium 137 133 - 145 mmol/L LAB CHEMISTRY METHOD 09/04/2025 4:50 AM [facility] Potassium 3.9 3.5 - 5.5 mmol/L LAB CHEMISTRY METHOD 09/04/2025 4:50 AM [facility] Chloride 107 96 - 110 mmol/L LAB CHEMISTRY METHOD 09/04/2025 4:50 AM [facility] CO2 26 21 - 32 mmol/L LAB CHEMISTRY METHOD 09/04/2025 4:50 AM [facility] Anion Gap 4 3 - 11 LAB CHEMISTRY METHOD 09/04/2025 4:50 AM [facility] Glucose 115(H) 70 - 100 mg/dL LAB CHEMISTRY METHOD 09/04/2025 4:50 AM [facility] BUN 5 5 - 25 mg/dL LAB CHEMISTRY METHOD 09/04/2025 4:50 AM [facility] Creatinine 0.54 0.50 - 1.10 mg/dL LAB CHEMISTRY METHOD 09/04/2025 4:50 AM EST [facility] eGFR 136 >=60 mL/min/1. 73m2 LAB CHEMISTRY METHOD 09/04/2025 4:50 AM EST [facility] Comment:Calculation based on the Chronic Kidney Disease Epidemiology Collaboration (CKD-EPI) equation refit without adjustment for race. BUN/Creatinine Ratio 9.3 LAB CHEMISTRY METHOD 09/04/2025 4:50 AM EST [facility] Calcium 9.3 8.5 - 10.5 mg/dL LAB CHEMISTRY METHOD 09/04/2025 4:50 AM EST [facility] Blood Venous blood specimen / Unknown Venipuncture / Unknown 09/04/2025 4:09 AM EST 09/04/2025 4:16 AM EST us Oliva Puri MD LAB BLOOD ORDERABLES Final Re sult [facility] [address] [place] [address], [place] [phone] * (ABNORMAL) POCT Glucose, blood (09/03/2025 11:06 PM EST) Only the most recent of5 resultswithin the time period is included. [facility] Glucose POCT 131(H) 70 - 100 mg/dL 09/03/2025 11:06 PM EST [facility] Blood Capillary blood specimen / Unknown 09/03/2025 11:06 PM EST 09/03/2025 11:07 PM EST us Oliva Puri MD LAB POINT OF CARE TE ST DOCKED DEVICE UNSOLICITED RESULTS Final Result [facility] [address] [place] [address], [place] [phone] * Lavender tube (09/03/2025 12:36 PM EST) Extra Tube Hold for add-ons. 09/03/2025 2:01 PM EST [facility] Comment:Auto resulted. Blood Venous blood specimen / Unknown 09/03/2025 12:36 PM EST 09/03/2025 12:40 PM EST us Oliva Puri MD LAB BLOOD ORDERABLES Final Re sult [facility] [address] [place] [address], [place] [phone] * (ABNORMAL) Hepatic function panel (09/03/2025 4:50 AM EST) Only the most recent of2 resultswithin the time period is included. Pathologist [facility] Total Protein 6.7 6.0 - 8.0 g/dL LAB CHEMISTRY METHOD 09/03/2025 5:43 AM [facility] Albumin 3.7 3.2 - 5.0 g/dL LAB CHEMISTRY METHOD 09/03/2025 5:43 AM [facility] Total Bilirubin 0.6 0.0 - 1.4 mg/dL LAB CHEMISTRY METHOD 09/03/2025 5:43 AM [facility] Bilirubin, Direct 0.2 0.0 - 0.3 mg/dL LAB CHEMISTRY METHOD 09/03/2025 5:43 AM [facility] Bilirubin, Indirect 0.4 0.0 - 1.1 mg/dL LAB CHEMISTRY METHOD 09/03/2025 5:43 AM [facility] ALT (SGPT) 25 10 - 60 unit/L LAB CHEMISTRY METHOD 09/03/2025 5:43 AM [facility] AST (SGOT) 9(L) 10 - 42 unit/L LAB CHEMISTRY METHOD 09/03/2025 5:43 AM [facility] Alkaline Phosphatase 78 42 - 121 unit/L LAB CHEMISTRY METHOD 09/03/2025 5:43 AM [facility] Blood Venous blood specimen / Unknown Venipuncture / Unknown 09/03/2025 4:50 AM EST 09/03/2025 5:02 AM EST us Oliva Puri MD LAB BLOOD ORDERABLES Final Re sult [facility] [address] [place] [address], [place] [phone] * XR Chest 1 View (09/01/2025 9:07 [...] Signed Date: 09/02/2025 07:10 ET Workstation ID: [id number] Transcribed By: Self Edit Transcribed Date: 09/02/2025 [...] Signed Date: 09/02/2025 07:10 ET Workstation ID: [id number] Transcribed By: Self Edit Transcribed Date: 09/02/2025 07:09 ET us Marion Stephenson NP IMG XR PROCEDURES Final Result * Insert PICC line (09/01/2025 7:58 PM EDT) Lida Albarado RN - 09/01/2025 7:58 PM EDT Lida Jacques RN 09/01/2025 10:40 PM PICC Line Insertion Procedure Note Procedure: Insertion of 4F Double lumen Bard Provena PowerPICC Lot: [id number] Exp: 2026-06-01 Indications: Vasopressor Procedure Details: Informed [...] Brochure given to patient with teaching instruction. us Oliva Puri MD IV THERAPY ORDERABLES Edited Result - Final * Drug abuse screen 8a panel, urine (09/01/2025 3:26 PM EDT) Amphetamine Screen, Ur Negative Negative LAB CHEMISTRY METHOD 09/01/2025 4:24 PM EDT [facility] Comment:Certain OTC medicati ons containing ephedrine, phenylephrine, pseudoephedrine and phenylpropanolamine can cause false positive results. Barbiturate Screen, Ur Negative Negative LAB CHEMISTRY METHOD 09/01/2025 4:24 PM EDT [facility] Benzodiazepine Screen, Ur Negative Negative LAB CHEMISTRY METHOD 09/01/2025 4:24 PM EDT [facility] Cocaine Screen, Ur Negative Negative LAB CHEMISTRY METHOD 09/01/2025 4:24 PM EDT [facility] Opiate Screen, Ur Negative Negative LAB CHEMISTRY METHOD 09/01/2025 4:24 PM EDT [facility] Cannabinoid (THC) Screen, Ur Negative Negative LAB CHEMISTRY METHOD 09/01/2025 4:24 PM T [facility] Comment:Specimens from patie nts taking pantoprazole sodium (Protonix) have been shown to produce false positive results. Oxycodone Screen, Ur Negative Negative LAB CHEMISTRY METHOD 09/01/2025 4:24 PM EDT [facility] Fentanyl, Ur Negative Negative LAB CHEMISTRY METHOD 09/01/2025 4:24 PM T [facility] Urine Urine specimen obtained by clean catch procedure / Unknown Non-blood Collection / Unknown 09/01/2025 3:26 PM EDT 09/01/2025 3:45 PM EDT Narrative [facility] - 09/01/2025 4:24 PM EDT [...] ORDERABLES Final Resu lt Performing Organization Address [facility]/ZIP Co de Phone Number [facility] [address] [place] [address], * Buprenorphine screen, urine (09/01/2025 3:26 PM EDT) Buprenorphine Screen Urine Negative Negative LAB CHEMISTRY METHOD 09/01/2025 4:24 PM EDT [facility] Urine Urine specimen obtained by clean catch procedure / Unknown Non-blood Collection / Unknown 09/01/2025 3:26 PM EDT 09/01/2025 3:45 PM EDT Narrative [facility] - 09/01/2025 4:24 PM EDT Assay cutoff 5 ng/mL Semi-quantitative assay for screening purposes only. Unconfirmed screening result should not be used for non-medical purposes. *ALTERNATE METHOD CONFIRMATION DONE UPON REQUEST ONLY* Jose Brizuela MD LAB URINE ORDERABLES Final Resu lt Performing Organization Address [facility]/ZIP De de Phone Number [facility] [address] [place] [address], * Methadone, urine (09/01/2025 3:26 PM EDT) Methadone Screen, Urine Negative Negative LAB CHEMISTRY METHOD 09/01/2025 4:24 PM EDT [facility] Comment: Assay cutoff 300 ng/mL Semi-quantitative assay for screening purposes only. Unconfirmed screening result should not be used for non-medical purposes. *ALTERNATE METHOD CONFIRMATION DONE UPON REQUEST ONLY* Urine Urine specimen obtained by clean catch procedure / Unknown Non-blood Collection / Unknown 09/01/2025 3:26 PM EDT 09/01/2025 3:45 PM EDT Jose Brizuela MD LAB URINE ORDERABLES Final Resu lt Performing Organization Address [facility] Co de Phone Number [facility] [address] [place] [address], [place] [phone] * Phencyclidine, urine (09/01/2025 3:26 PM EDT) PCP Scrn, Ur Negative Negative LAB CHEMISTRY METHOD 09/01/2025 4:24 PM EDT [facility] Comment: Assay cutoff 25 ng/mL Semi-quantitative assay for screening purposes only. Unconfirmed screening result should not be used for non-medical purposes. *ALTERNATE METHOD CONFIRMATION DONE UPON REQUEST ONLY* Urine Urine specimen obtained by clean catch procedure / Unknown Non-blood Collection / Unknown 09/01/2025 3:26 PM EDT 09/01/2025 3:45 PM EDT Jose Brizuela MD LAB URINE ORDERABLES Final Resu lt Performing Organization Address [facility] Co de Phone Number [facility] [address] [place] [address], [place] [phone] * POC , urine manually resulted (09/01/2025 3:23 PM EDT) HCG, Ur POC Negative Negative POC hCG Int QC Pass? Yes Yes Urine Urine specimen obtained by clean catch procedure / Unknown 09/01/2025 3:23 PM EDT us Jose Brizuela MD POINT OF CARE TEST ENTER/EDIT O RDERABLES Final Result * Ethanol (09/01/2025 1:21 PM EDT) Ethanol Level <3 0 - 10 mg/dL LAB CHEMISTRY METHOD 09/01/2025 2:19 PM EDT [facility] Blood Venous blood specimen / Unknown Venipuncture / Unknown 09/01/2025 1:21 PM EDT 09/01/2025 1:25 PM EDT Jose Brizuela MD LAB BLOOD ORDERABLES Final Resu lt Performing Organization Address [facility]/ZIP Co de Phone Number [facility] [address] [place] [address], [place] [phone] * (ABNORMAL) Acetaminophen level (09/01/2025 1:21 PM EDT) Acetaminophen Level <2.0(L) 10.0 - 30.0 mcg/mL LAB CHEMISTRY METHOD 09/01/2025 2:19 PM EDT [facility] Blood Venous blood specimen / Unknown Venipuncture / Unknown 09/01/2025 1:21 PM EDT 09/01/2025 1:25 PM EDT Jose Brizuela MD LAB BLOOD ORDERABLES Final Resu lt Performing Organization Address [facility] Co de Phone Number [facility] [address] [place] [address], [place] [phone] * (ABNORMAL) Salicylate level (09/01/2025 1:21 PM EDT) Salicylate Level <1.7(L) 2.0 - 29.0 mg/dL LAB CHEMISTRY METHOD 09/01/2025 2:19 PM EDT [facility] Blood Venous blood specimen / Unknown Venipuncture / Unknown 09/01/2025 1:21 PM EDT 09/01/2025 1:25 PM EDT Jose Brizuela MD LAB BLOOD ORDERABLES Final Resu lt Performing Organization Address [facility]/ZIP Co de Phone Number [facility] [address] [place], [place] [address] [phone] * (ABNORMAL) Comprehensive metabolic panel (09/01/2025 1:21 PM EDT) Sodium 136 133 - 145 mmol/L LAB CHEMISTRY METHOD 09/01/2025 2:19 PM [facility] Potassium 4.4 3.5 - 5.5 mmol/L LAB CHEMISTRY METHOD 09/01/2025 2:19 PM [facility] Comment:Hemolysis present Chloride 108 96 - 110 mmol/L LAB CHEMISTRY METHOD 09/01/2025 2:19 PM [facility] CO2 21 21 - 32 mmol/L LAB CHEMISTRY METHOD 09/01/2025 2:19 PM [facility] Anion Gap 7 3 - 11 LAB CHEMISTRY METHOD 09/01/2025 2:19 PM [facility] Glucose 111(H) 70 - 100 mg/dL LAB CHEMISTRY METHOD 09/01/2025 2:19 PM [facility] BUN 10 5 - 25 mg/dL LAB CHEMISTRY METHOD 09/01/2025 2:19 PM [facility] Creatinine 0.55 0.50 - 1.10 mg/dL LAB CHEMISTRY METHOD 09/01/2025 2:19 PM [facility] eGFR 136 >=60 mL/min/1. 73m2 LAB CHEMISTRY METHOD 09/01/2025 2:19 PM [facility] Comment:Calculation based on the Chronic Kidney Disease Epidemiology Collaboration (CKD-EPI) equation refit without adjustment for race. BUN/Creatinine Ratio 18.2 LAB CHEMISTRY METHOD 09/01/2025 2:19 PM [facility] Calcium 9.0 8.5 - 10.5 mg/dL LAB CHEMISTRY METHOD 09/01/2025 2:19 PM [facility] AST (SGOT) 30 10 - 42 unit/L LAB CHEMISTRY METHOD 09/01/2025 2:19 PM [facility] Comment:Hemolysis present ALT (SGPT) 32 10 - 60 unit/L LAB CHEMISTRY METHOD 09/01/2025 2:19 PM EDT [facility] Alkaline Phosphatase 70 42 - 121 unit/L LAB CHEMISTRY METHOD 09/01/2025 2:19 PM EDT [facility] Total Protein 6.4 6.0 - 8.0 g/dL LAB CHEMISTRY METHOD 09/01/2025 2:19 PM EDT [facility] Albumin 3.6 3.2 - 5.0 g/dL LAB CHEMISTRY METHOD 09/01/2025 2:19 PM EDT [facility] Total Bilirubin 0.7 0.0 - 1.4 mg/dL LAB CHEMISTRY METHOD 09/01/2025 2:19 PM EDT [facility] Blood Venous blood specimen / Unknown Venipuncture / Unknown 09/01/2025 1:21 PM EDT 09/01/2025 1:25 PM EDT us Jose Brizuela MD LAB BLOOD ORDERABLES Final Resu lt [facility] [address] [place] [address], * [facility] 30-74 MINUTES (09/01/2025 12:35 PM [...] MD IN CLINIC/BEDSIDE ORDERABLES Fi nal Result from Last 3 Months Insurance [facility] Advance Directives * Full Code - Default (Latest Code Status on File) Date Activated Date Inactivated Comments 09/01/2025 4:19 PM 09/05/2025 3:05 PM This is ord er is used when code status has not been discussed with the patient, or code status is otherwise unknown/unconfirmed To update the patient's code status, place a code status order. Do not modify or discontinue any currently active code status orders. Care Teams Head Knitting Machine Fixer Relationship Specialty Start Date End Date Kev Canales MD [address] [place] [address] [place] [address] PCP - General Pediatric Endocrinology 09/01/25
--- OUTSIDE RECORDS SUMMARY | 2025-09-05 16:09 | XMS_ITS | Encounter Summary ---
Author Organization [facility] Address [address] [place] [address] Phone Care Team Providers Care Pipe Liner Name Role Phone Kev Canales MD Primary Care Provider [phone] Reason for Visit * Reason Onset Date Comments Hospital Admission 09/04/2025 Encounter Details Date Type Department Care Team ([facility] st Contact Info) Description 09/04/2025 Telephone [facility] [address] [place] [address] [place] [address] Kev Canales MD [address] [place] [address] [place] [address] Hospital Admission Social History Tobacco Use Types Packs/Day Years [...] PM EDT documented as of this encounter Miscellaneous Notes * Telephone Encounter - Kev Canales MD - 09/04/2025 11:05 AM EST Noted. * Telephone Encounter - Vianca Acevedo MA - 09/04/2025 8:23 AM EST DOS: 09/01/25 Admitted for Ingestion of toxic substance, SI Spoke with mom who states pt is still in ICU due to her low blood pressures but may get d/c today to a facility. Mom unsure where yet though. They will have a meeting later today to discuss everything. I told mom we will follow up again once d/c. MQ documented in this encounter Plan of Treatment Upcoming Encounters Date Type Department Care Team (Late st Contact Info) Description 01/19/2026 3:15 PM EDT Office Visit [facility] [address] [place] [address] [place] [address] Kev Canales MD [address] [place] [address] [place] [address] 07/23/2026 3:30 PM EDT Office Visit [address] [place] [address] Kev Canales MD [address] [place] [address] [place] [address] documented as of this encounter Visit Diagnoses Diagnosis Suicide attempt- Primary Suicide and self-inflicted injury by unspecified means documented in this encounter Care Teams Pipe Liner Relationship Specialty Start Date End Date Kev Canales MD [address] [place] [address] [place] [address] PCP - General Pediatrics 02/22/19 documented as of this encounter
--- OUTSIDE RECORDS SUMMARY | 2025-09-05 16:09 | XMS_ITS | Encounter Summary ---
Author Organization [facility] Address [address] [place] [id number] Phone Care Team Providers Care Announcer Name Role Phone Kev Canales MD Primary Care Provider Encounter Details Date Type Department Care Team (Late st Contact Info) Description 04/23/2011 Conversion Encounter [facility] [address] [place] [address] [place] [address] Social History Tobacco Use Types Packs/Day Years Used Date Smoking Tobacco: Never Assessed Comments Unknown Sex and Gender Information Value [...] Description 01/19/2026 3:15 PM EDT Office Visit [address] [place] [address] Kev Canales MD [address] [place] [address] [place] [address] 07/23/2026 3:30 PM EDT Office Visit [address] [place] [address] Kev Canales MD [address] [place] [address] [place] [address] documented as of this encounter Visit Diagnoses Not on filedocumented in this encounter Care Teams Announcer Relationship Specialty Start Date End Date Kev Canales MD [facility] [place] [address] PCP - General Pediatrics 02/22/19 documented as of this encounter
--- OUTSIDE RECORDS SUMMARY | 2025-09-05 16:09 | XMS_ITS | Encounter Summary ---
Author Organization [facility] Address [address] [place] [address] Phone Care Team Providers Care Fire Alarm Technician Name Role Phone Kev Canales MD Primary Care Provider [phone] Reason for Visit * Reason Onset Date Comments D/C to psych 09/05/2025 Encounter Details Date Type Department Care Team ([facility] Contact Info) Description 09/05/2025 Telephone [facility] [address] [place] [address] [place] [address] Kev Canales MD [address] [place] [address] [place] [address] D/C to psych Social History Tobacco Use Types Packs/Day Years [...] encounter Miscellaneous Notes * Telephone Encounter - Vianca Acevedo MA - 09/05/2025 2:35 PM EST DOS: 09/01/25-09/05/25 D/C to Psych documented in this encounter Plan of Treatment Upcoming Encounters Date Type Department Care Team (Late st Contact Info) Description 01/19/2026 3:15 PM EDT Office Visit [address] [place] [address] Kev Canales MD [address] [place] [address] [place] [address] 07/23/2026 3:30 PM EDT Office Visit [facility] [address] [place] [address] [place] [address] Kev Canales MD [address] [place] [address] [place] [address] documented as of this encounter Visit Diagnoses Not on filedocumented in this encounter Care Teams Fire Alarm Technician Relationship Specialty Start Date End Date Kev Canales MD [address] [place] [address] [place] [address] PCP - General Pediatrics 02/22/19 documented as of this encounter
--- OUTSIDE RECORDS SUMMARY | 2025-09-05 16:09 | XMS_ITS | Clinical Summary ---
Author Organization [facility] Address [address] [place] [address] Phone Care Team Providers Care Paper Colorer Name Role Phone Kev Canales MD Primary Care Provider Allergies No known active allergies Medications Cetirizine HCl (ZYRTE CHILDRENS ALLERGY) 5 MG/5ML solutionIndications :Viral URI Take 10 mL by mouth nightly as needed (allergic rhinitis). 1 Bottle 1 9 Active citalopram 40 MG tabletIndications:M ood disorder Take 1 tablet (40 mg total) by mouth daily. 90 tablet 1 5 01/09/20 26 Active cloNIDine 0.1 MG tabletIndications:A ttention deficit hyperactivity disorder (ADHD), unspecified ADHD type Take 1 tablet (0.1 mg total) by mouth nightly. 90 tablet 1 5 Active ondansetron ODT [address] 1 TABLET UNDER THE TONGUE TO DISSOLVE EVERY 4-6 HOURS NEEDED FOR NAUSEA 5 Active Active Problems Problem Noted Date Diagnosed Date Suicide attempt 09/04/2025 Overview (09/04/2025): 08/31/2025 - ED visit after ingesting a number of clonidine and citalopram pills. ICU admission. Concerns for low blood pressure. Looking to transfer to inpatient psychiatric program. PTSD (post-traumatic stress disorder) 07/12/2025 Overview (07/12/2025): 06/2025 - [facility]. Diagnosis of PTSD. Assessment & Plan (07/12/2025 4:15 PM EDT): Seen at [facility]. Diagnosis of PTSD recently. Irregular periods 07/12/2025 Assessment & Plan (07/12/2025 4:17 PM EDT): With irregular periods (missed periods and variable periods and spotting between periods) will obtain lab work to check for hormones that would disrupt a regular period pattern. Follow up in a month to review this lab work. BMI 29.0-29.9,adult 07/12/2025 Assessment & Plan (07/12/2025 4:16 PM EDT): BMI over 25 and more so over 30 places patient at increased risk for development of diabetes, cardiovascular disease and kidney disease. Discussed these things in this visit. Discussed importance of being active 30 minutes every day. Eats small portions. Drinks mostly water. Will screen for cholesterol, diabetes and elevated liver transaminases. Allergic rhinitis 01/02/2025 Assessment & Plan (01/02/2025 5:17 PM EST): Persistent congestion year round that may trigger her headaches. Continue with cetirizine that helps some with this. Given allergy office list as she is interested in considering allergy shots for this. Tension headache 07/01/2024 Assessment & Plan (07/01/2024 5:08 PM EDT): Continue with current treatment of headaches. Patient and mother to watch how this goes through the fall and starting up at [facility]. ADHD 05/23/2023 Overview (05/23/2023): 05/23/2023 - Appointment in June with [facility]. Filling scripts for dextraamphetamine ER 10mg and clonidine 0.1mg Assessment & Plan (07/12/2025 4:19 PM EDT): Continue with clonidine to help with sleep onset. Assessment & Plan (07/01/2024 5:09 PM EDT): Kimi does not like how the Adderall made her feel. Stopped this medication last year. Patient and mother to watch as she starts up at [facility] but did OK last year without this medication. Continue with clonidine for getting to sleep. Assessment & Plan (06/29/2023 9:26 PM EDT): Seen by Dr. Marks for ADHD medications. Discussed looking at [email or web address] for a medication provider or following up with our office for these medications. Mood disorder 02/24/2018 Overview (05/23/2023): Depression (311) Onset: 02/24/2018 Added by: Kev Canales 05/23/2023 - Appointment in June with [facility]. Filling Citalopram 20mg script. Assessment & Plan (08/11/2025 4:03 PM EDT): Plan to continue with citalopram 40mg daily. Follow up in 5-6 months. Assessment & Plan (01/02/2025 5:16 PM EST): Continue with citalopram 20mg daily and Clonidine 0.1mg in the evening. Follow up at well visit in July. Assessment & Plan (07/01/2024 5:10 PM EDT): Continue with citalopram 20mg daily. Assessment & Plan (06/29/2023 9:34 PM EDT): Dr. Marks currently follows Kristal for her mood disorder and prescribes clonidine and citalopram for this. Kristal is looking for another provider as Dr. Marks has limited office hours. Discussed [facility] provider search as well as following up in our office for this. She has a therapist at [facility]. Assessment & Plan (06/27/2022 1:37 PM EDT): Dr Marks at [facility] for medication management and a therapist. This is going well. Assessment & Plan (06/26/2021 10:19 PM EDT): Patient is currently on citalopram and clonidine as prescribed by her psychiatric team at [facility]. Continue follow up. Autism spectrum 02/17/2014 Overview (03/13/2023): Asperger's disorder (299.80) Onset: 02/17/2014 Added by: Kev Canales 08/02/2008 - [facility]. Addie Butts diagnosed with autism spectrum with evaluation and ADOS testing. Resolved Problems Problem Noted Date Diagnosed Date Resolved Date Impacted cerumen of left ear 09/30/2021 06/27/2022 Assessment & Plan (09/30/2021 6:06 PM EST): Continue with use of debrox. Discussed doing flushing of ears on her own so she can control this more. Encounter for surveillance o f contraceptive pills 06/26/2021 09/30/2021 Assessment & Plan (06/26/2021 10:16 PM EDT): Switching from a patch to pills to manage heavy periods. Will follow up in 2-3 months to see how this is going. Metrorrhagia 06/01/2020 07/01/2024 Assessment & Plan (06/29/2023 9:29 PM EDT): Patient took herself off of OCP due to weight concerns about 1 month ago. First period off of the OCP was decent per her description. Will follow forward off of OCP. Assessment & Plan (06/27/2022 1:37 PM EDT): Heavy periods are being controlled with Junel 20mcg estradiol pill. Assessment & Plan (09/30/2021 6:07 PM EST): Junel 1/20 pill is helping with regulating periods so that they are regular and minimally interfering with what she wants to do. Plan to continue on pill and will follow forward. Assessment & Plan (08/31/2020 4:47 PM EDT): Estrogen progesterone patch appears to be helping to regulate her periods. Plan to continue with this. Follow up at next well visit. Assessment & Plan (06/01/2020 11:55 PM EDT): History of painful periods that have taken her out of school activities. Discussed using hormonal therapy to regulate her periods. She was interested in this but not taking a pill or getting injections. She was interested in a patch. Will obtain a urine hCG prior to starting patch. Follow up in 3 months to see how this is going for her. Chronic diffuse otitis externa of left ear 06/01/2020 06/26/2021 Assessment & Plan (06/01/2020 11:53 PM EDT): Kimi notes that she has had ear pain on and off for the last several months at least. Exam consistent with otitis externa. Will treat with topical antibiotic drops to the ear canal. Non-seasonal allergic rhinitis due to pollen 9 06/01/2020 Assessment & Plan (02/26/2019 7:24 AM EDT): Some recent issues with swallowing reported. Discussed trial of cetirizine or loratadine to see if this helps with possible throat irritation that is leading to noted difference in swallowing. Return to clinic if no improvement or worsening symptoms. Encounters Date Type Department Care Team Description 09/05/[address] [place] [address] Kev Canales MD D/C to psych 09/05/2025 - Present Hospital Encounter [facility] - Patient Ping 09/04/[address] [place] [address] Kev Canales MD Hospital Admission 08/11/2025 4:00 PM EDT Office Visit [address] [place] [address] Kev Canales MD Mood disorder (Primary Dx) 07/13/2025 Orders Only [address] [place] [address] Kev Canales MD Irregular periods (Primary Dx) 07/12/2025 3:30 PM EDT Office Visit [address] [place] [address] Kev Canales MD Well adult exam (Primary Dx); Need for vaccination; Screening for iron deficiency anemia; Dietary counseling; Exercise counseling; Screen for STD (sexually transmitted disease); PTSD (post-traumatic stress disorder); Mood disorder; Attention deficit hyperactivity disorder (ADHD), unspecified ADHD type; Irregular periods; BMI 29.0-29.9,adult from Last 3 Months Immunizations Immunization Administration Dates Next Due DTaP / Hep B / IPV 03/16/2006,01/14/2006, 006 DTaP 5 10/09/2010,03/09/2007 H1N1 Inj Preservative Free 10/08/2009 H1N1 Nasal 08/17/2009 HPV Vaccine 9 Valent 02/24/2018,02/23/2017 Hep A, ped/adol 09/13/2007,09/18/2006 Hep B, ped/adol 2005 Hib (PRP-T) 03/09/2007, 6,01/14/2006,11/10 IPV 10/09/2010 Influenza, injectable, MDCK, preservative free, quadrivalent 07/28/2023 Influenza, injectable, MDCK, trivalent, preservative free 07/05/2024 Influenza, injectable, quadr ivalent, preservative free 09/05/2022,08/07/2020 Influenza, injectable, trivalent 013,10/09/2010,10/08/2009,11/17,09/13/2007 Influenza, injectable, triva lent, preservative free 07/12/2025 Influenza, intranasal, trivalent 08/19/2014 MMR 10/09/2010 MMRV 09/18/2006 Meningococcal Conj (Menactra) MCV4P 02/23/2017 Meningococcal Conj (Menquadfi) MCV4TT 06/29/2023 ,06/27/2022 Pneumococcal Conjugate 01/07/2007,2005,01/14/2006,11/10 Pneumococcal Polysaccharide 01/08/2009 Tdap 02/23/2017 Varicella 10/09/2010 Family History Medical History Relation Name Comments No Known Problems Father Dot Asthma Mother Lida Relation Name Status Comments Father Dot Alive Mother Lida Alive Social History Tobacco Use Types Packs/Day Years [...] Orientation Bisexual 06/01/2020 11 :38 PM EDT Last Filed Vital Signs Vital Sign Reading Time Taken Comments Blood Pressure 110/76 08/11/2025 3:50 PM EDT Pulse 85 07/12/2025 3:26 PM EDT Temperature 36.6 C (97.8 F) 08/11/2025 3:50 PM EDT Respiratory Rate - - Oxygen Saturation - - Inhaled Oxygen Concentration - - Weight 69.4 kg (153 lb) 08/11/2025 3:50 PM EDT Height 154.3 cm (5' 0.73 ) 07/12/2025 3:26 PM ED T Body Mass Index 29.17 07/12/2025 3:26 PM EDT Plan of Treatment Upcoming Encounters Date Type Department Care Team (Late st Contact Info) Description 01/19/2026 3:15 PM EDT Office Visit [facility] [address] [place] [address] [place] [address] Kev Canales MD [address] [place] [address] [place] [address] 07/23/2026 3:30 PM EDT Office Visit [facility] [address] [place] [address] [place] [address] Kev Canales MD [address] [place] [address] [place] [address] Health Maintenance Due Date Last Done Comments Men B Vaccine (1 of 2 - Standard) 2021 DTaP,Tdap,and Td Vaccines (7 - Td or Tdap) 02/23/2027 02/23/2017, 10/09/2010, 03/09/2007, Additional history exists Hepatitis B Vaccines Completed 03/16/2006, 01/14/2006, 2005, Additional history exists HIB Vaccines Completed 03/09/2007, 03/02, 01/14/2006, Additional history exists Hepatitis A Vaccines Completed 09/13/2007, 09/18/20 Pneumococcal Vaccine Completed 01/08/2009, 01/07/2007, 03/16/2006, Additional history exists IPV Vaccines Completed 10/09/2010, 03/02, 01/14/2006, Additional history exists MMR Vaccines Completed 10/09/2010, 09/18/2006 Varicella Vaccines Completed 10/09/2010, 09/18/2006 HPV Vaccines Completed 02/24/2018, 02/23/2017 Meningococcal Vaccine Completed 06/29/2023 , 06/27/2022, 02/23/2017 Chlamydia and Gonorrhea Screening Completed 07/12/2025, 07/01/2024, 06/29/2023, Additional history exists Influenza Vaccines Completed 07/12/2025, 0 07/05/2024, 07/28/2023, Additional history exists COVID-19 Vaccine Completed 07/21/2025, 01/2024, 07/28/2023, Additional history exists Procedures * The patient is currently admitted. The information in this section might not be complete until the patient is discharged.Due to [place] RF [employer] law, this organization might not be sharing sensitive test results. Procedure Name Priority Date/Time Associated Diagnosis Comments CHLAMYDIA AND GONORRHEA, AMPLIFIED Routine 07/12/2025 3:45 PM EDT Screen for STD (sexually transmitted disease) POCT HEMOGLOBIN Routine 07/12/2025 3:43 PM EDT Screening for iron deficiency anemia BRIEF BEHAVIORAL ASSESSMENT - NORMAL(PSC,PHQ9,VAN DERBILT,ETC) Routine 07/12/2025 3:32 PM EDT Well adult exam from Last 3 Months Results * Due to [place] [employer] law, this organization might not be sharing sensitive test results. * Chlamydia and Gonorrhoea, Amplified (07/12/2025 3:45 PM EDT) C trach SANTI Negative Negative [facility] N gonorrhoeae SANTI Negative Negative [facility] Swab (Vagina) 07/12/2025 3:4 5 PM EDT 07/12/2025 Comment:Vagina Narrative [facility] - 07/13/2025 6:05 PM EDT Performed at: - [facility] [place] [address], [address], [place], [place] [id number] Senior Linux Systems Engineer: Jomar Shields MD, Phone: [phone] us Kev Canales MD LAB MICROBIOLOGY - GENERAL O RDERABLES Final Result [facility] [address] [place] [address] * POCT hemoglobin (07/12/2025 3:43 PM EDT) [facility] Signature Hemoglobin, POC 12.5 11.4 - 14.8 g/dL [facility] Blood (Blood) 07/12/2025 3:4 3 PM EDT us Kev Canales MD POINT OF CARE TEST ORDERABLE S Final Result Performing Organization Address [facility] [[email or web address]] Co de Phone Number [facility] [address] [place] [address], [address] [place] [address] from Last 3 Months Insurance [facility] PPO Care Teams Paper Colorer Relationship Specialty Start Date End Date Kev Canales MD [address] [place] [address] [place] [address] PCP - General Pediatrics 02/22/19
--- OUTSIDE RECORDS SUMMARY | 2025-09-05 16:09 | XMS_ITS | Encounter Summary ---
Author Organization [facility] Address [address] [place] [address] Phone Care Team Providers Care Ship Propeller Finisher Name Role Phone Kev Canales MD Primary Care Provider [phone] Reason for Visit * Reason Comments Med Refill Encounter Details Date Type Department Care Team ([facility] st Contact Info) Description 05/08/2023 Refill [facility] [address] [place] [address] [place] [address] Kev Canales MD [address] [place] [address] [place] [address] Encounter for surveillance of contraceptive pills Social History Tobacco Use Types Packs/Day Years [...] there wasn't enough money for food? No 06/26/2021 Stable Housing Answer Date Recorded Are you worried that in the next 2 months you may not have stable housing? No 06/26/2021 Transportation Concerns Answer Date Rec orded In the last 12 months, have you or your family ever had to go without healthcare because you didn't have a way to get there? No 06/26/2021 Hazards in Home Answer Date Recorded Think about the place you li ve. Do you have problems with any of the following? Pests (mice or roaches), mold, no/not working smoke detectors, water leaks, no window guards. No 2020 Financing Utilities Answer Date Recorde d In the last 12 months, has t he electric, gas, oil, or water company threatened to shut off your services in your home? No 06/26/2021 Safety at Home Answer Date Recorded Are you or your family worried about feeling saf e in your home? No 06/26/2021 Outside Support Answer Date Recorded Do you feel that you need mo re support from other people or programs to help you care for yourself or your family? No 06/26/2021 Understanding Health Concerns Answer Da te Recorded Do you need help understandi ng your or your child's healthcare needs (diagnosis, medications, plan, etc.)? No 06/26/2021 Financing Health Concerns Answer Date R ecorded In the last 12 months, was t here a time when your child needed to see a doctor or get medications or supplies but could not because of cost? No 06/26/2021 Missing School or Work Answer Date Fitz rded Did you or your child miss s chool or work because of a health problem that could have been avoided? No 06/26/2021 Comments No Sex and Gender Information Value [...] Description 01/19/2026 3:15 PM EDT Office Visit [facility] [address] [place] [address] [place] [address] Kev Canales MD [address] [place] [address] [place] [address] 07/23/2026 3:30 PM EDT Office Visit [facility] [address] [place] [address] [place] [address] Kev Canales MD [address] [place] [address] [place] [address] documented as of this encounter Visit Diagnoses Diagnosis Encounter for surveillance of contraceptive pills documented in this encounter Care Teams Ship Propeller Finisher Relationship Specialty Start Date End Date Kev Canales MD [address] [place] [address] [place] [address] PCP - General Pediatrics 02/22/19 documented as of this encounter
[2025-09-05 17:05] VITALS: BMI 27.5
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
[2025-09-05 20:00] VITALS: BP 112/76; PULSE 117; TEMP 36.9; O2SAT 97
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
--- NOTE | 2025-09-06 08:32 | HO.PM.IMCN ---
History of Present Illness Data of Consult Service Date: 09/06/25 Primary Care Provider: Unknown Physician HPI Reason for consult: Medical consult 19-year-old female with major depressive disorder presented to [facility] for toxic ingestion. Patient reportedly took eight tabs of clonidine, 8 hydroxyzine and unknown number of Lexapro. On arrival her metabolic panel within normal limits, CBC without leukocytosis or anemia. Negative HCG. In the ED she was hypotensive and received fluids. She had serial EKGs. She was hypotensive, received fluids and admitted to the ICU for vasopressor support for 4 days. She was medically cleared and then transferred here for further care. On exam she has no medical concerns. Her blood pressure is stable. She is ambulatory on the unit, in good spirits. Review of Systems Review of Systems: Denies any shortness of breath, chest pain, headaches, dysuria, abdominal pain or discomfort, nausea, vomiting or diarrhea. Denies fever or chills. [facility] Medical History (Updated 09/05/25 @ 19:03 by Rosita Valente, CIRILO) Adjustment reaction with mixed disturbance of emotions and conduct Social History Household Members: Family Housing: House Do you presently have visiting nurse or other home services: No Patient Tobacco Use Status: Never used Tobacco Currently Displaying Signs/Symptoms of Drug Intoxication Withdrawal: No Have you been hit, kicked, punched, or otherwise hurt by someone within the past year? If so, by whom?: No Do you feel safe in your current relationship?: No Current Relationship Is there a partner from a previous relationship who is making you feel unsafe now?: No Are you made to feel afraid or neglected: No Spiritual Healthcare Practices: none Roman Catholic Healthcare Practices: none Cultural Healthcare Practices: none Advance Directives: No Advance Directives Information Provided: No Do you have thoughts of harming others: None Do you have a plan to hurt others: No Plan Recently lost weight without trying: No Eating poorly because of decreased appetite: No Nutrition Risks: No Nutritional Risk Patient : No : No Poor oral hygiene: No Meds Allergies Allergy/AdvReac Type Severity Reaction Status Date / Time lactose AdvReac Unknown Verified 09/05/25 16:00 Active Medications: Current Medications Acetaminophen (Acetaminophen 325 Mg Tablet) 650 mg PO Q6H PRN PRN Reason: Headache/Pain, Scale 1-10 Al Hydroxide/Mg Hydroxide (Magnesium Hydrox/Alum Hydrox 30 Ml Oral.Susp) 30 ml PO Q6H PRN PRN Reason: Heartburn/Nausea Fluoxetine HCl (Fluoxetine Hcl 20 Mg Capsule) 20 mg PO DAILY LISETTE Hydroxyzine HCl (Hydroxyzine Hcl 25 Mg Tablet) 25 mg PO Q6H PRN PRN Reason: mild anxiety Magnesium Hydroxide (Milk Of Magnesia 30 Ml Oral.Susp) 30 ml PO DAILY PRN PRN Reason: Constipation Nicotine Polacrilex (Nicotine Polacrilex 2 Mg Gum) 4 mg BUCCAL Q2H PRN PRN Reason: Nicotine Cravings Trazodone HCl (Trazodone Hcl 50 Mg Tablet) 50 mg PO BEDTIME MRX1 PRN PRN Reason: Insomnia Last Admin: 09/05/25 22:04 Dose: 50 mg Home Medications ?Medication ?Instructions ?Recorded ?Confirmed ?Last Taken ?Type fluoxetine 20 mg PO 1XD DEPRESSION 09/05/25 09/05/25 09/05/25 08:52 History Physical Exam Vital Signs and Narrative: Vital Signs: Last Vital Signs Temp 98.5 F 09/05/25 20:00 Pulse 117 H 09/05/25 20:00 Resp 18 09/05/25 15:08 BP 112/76 09/05/25 20:00 Pulse Ox 97 09/05/25 20:00 O2 Del Method Room Air 09/05/25 20:00 BMI result Body Mass Index 27.5 Alert and oriented X3, calm and cooperative. Answers questions. Neuro: CN II-X11 intact, no deficits, visual acuity intact EYES: PERRLA, EOM intact ENT: Hearing intact, MMM Cardiac: S1 S2 RRR, No ectopy Pulmonary: lungs clear to auscultation, No increased WOB. Abdominal: BS active in all 4 quadrants, no guarding or tenderness MSK: Strength 5/5 upper and lower extremities : Deferred Extremities: No edema in lower extremities Psych: Mood stable, Quiet and cooperative. Skin: Warm and dry, Intact Assessment and Plan (1) Adjustment reaction with mixed disturbance of emotions and conduct: Status: Acute Plan 19-year-old female with past medical history as listed below presented to [facility] with a toxic ingestion subsequently requiring ICU stay, now admitted for further stabilization. Major depressive disorder/adjustment reaction/suicide attempt with intentional ingestion Treatment per psychiatric team Thank you for allowing me to participate in the care of this patient. Will follow with you, please notify medical provider with any changes in condition or concerns.
--- NOTE | 2025-09-06 09:13 | HO.PSYCHPN ---
Subjective Subjective Date of Service: 09/06/25 Reason For Visit: F33.2 MDD Recurrent Severe without psychotic featu Subjective Notes: Conditional Voluntary Healthcare Proxy: No Guardianship: No Medical Problems Affecting Mental Status: No Interim History: Pt denies SI,HI,AH,VH. There are no sx of acute giovanna or psychosis. Team is working on PHP referrals. Call to therapist, Gretchen Segura, who returned call, requested ANCELMO which was sent x 2 with no return call for clinical discussion. Gretchen reports via voice mail she has discussed pt with her mother. Pt introduced to milieu, groups and is attending. Tolerating Fluoxetine initiated by PCP prior to admission. Discharge to PHP referral planned for 09/07. Medication Compliance: Yes Side effects from medications: No Attending Groups: Yes Review of Systems Acute medical concerns: No Medical Review of Systems: unchanged Review of Systems Review of Systems Denies Mental Status Exam Mental Status Exam Patient Appearance: Appropriate Patient Orientation: Person, Place, Time and Situation Level of Consciousness: Alert Patient Behavior: Appropriate, Talkative, Cooperative and Good Eye Contact Mood Description: Appropriate Affect Description: Appropriate Patient Cognition Impaired: No Ability to Follow Directions: Good Speech Pattern: Spontaneous Speech Memory Description: Intact Hallucinations: None Delusions: Not Present Thought Process: Intact and Goal Oriented Thought Content: positive for Circumstantial and positive for Suicidal Ideation (denies) Depressive Symptoms: Thoughts of /Suicide (denies) Judgement: Good Diagnostics Vital Signs (24Hr): Vital Signs - 24 hr 09/05/25 15:08 09/05/25 20:00 Temperature 98.9 F 98.5 F Pulse Rate 88 117 H Respiratory Rate 18 Blood Pressure 135/82 112/76 Pulse Oximetry 99 97 Oxygen Delivery Method Room Air Room Air BMI result Body Mass Index 27.5 Medications Medications Current Medications Acetaminophen (Acetaminophen 325 Mg Tablet) 650 mg PO Q6H PRN PRN Reason: Headache/Pain, Scale 1-10 Al Hydroxide/Mg Hydroxide (Magnesium Hydrox/Alum Hydrox 30 Ml Oral.Susp) 30 ml PO Q6H PRN PRN Reason: Heartburn/Nausea Fluoxetine HCl (Fluoxetine Hcl 20 Mg Capsule) 20 mg PO DAILY LISETTE Last Admin: 09/06/25 08:33 Dose: 20 mg Hydroxyzine HCl (Hydroxyzine Hcl 25 Mg Tablet) 25 mg PO Q6H PRN PRN Reason: mild anxiety Magnesium Hydroxide (Milk Of Magnesia 30 Ml Oral.Susp) 30 ml PO DAILY PRN PRN Reason: Constipation Nicotine Polacrilex (Nicotine Polacrilex 2 Mg Gum) 4 mg BUCCAL Q2H PRN PRN Reason: Nicotine Cravings Trazodone HCl (Trazodone Hcl 50 Mg Tablet) 50 mg PO BEDTIME MRX1 PRN PRN Reason: Insomnia Last Admin: 09/05/25 22:04 Dose: 50 mg Allergies Allergies Allergy/AdvReac Type Severity Reaction Status Date / Time lactose AdvReac Unknown Verified 09/05/25 16:00 Assessment & Plan Assessment & Plan (1) Adjustment reaction with mixed disturbance of emotions and conduct: Status: Acute Code(s): F43.25 - Adjustment disorder with mixed disturbance of emotions and conduct Plan 19 yo female, transfer from [facility] medical unit, Addie Mcclain MD, where she was admitted on 09/01 s/p overdose of #8 0.1 mg clonidine, #8 hydroxyzine, and Lexapro 5 mg, an unknown amount. This was an impulsive gesture precipiated by a psychosocial conflict which was hurtful to pt. Pt monitored for 4 days, medically cleared and transferred. Parents report Kat did not discuss a care plan to admit with them and as a result pt and parents arrived extremely upset, so immediate intake was offered to address concerns and create a plan of care. Pt and parents were not aware of 72 hour hold and pedi team was calling along with therapist. Parents report Kat offered them no information. Pt reports OD was due to an argument with two friends regarding another person. These friends were accusatory of her, sent her negative texts and were harrassing. Pt attempted to manage this stress for ~2 weeks, talking with her therapist about this, not talking with her parents and finally feeling unable to cope any longer with the negative stress. She reports she does not want to , believes she handled the stress incorrectly and is regretful of the attempt. Plan: Admit, CV, 15 minute checks Collateral contact Diagnostics as needed Continue Prozac 20 mg daily Encourage full milieu Aftercare planning, ?PHP Pt and parents agree with this plan. Patient educated on: therapeutic strategies Informed Consent: understands Reason for continued inpatient stay Substantial Risk for: rapid decompensation Time Spent With Patient Time: Total time managing care of this patient today ____ minutes.
[2025-09-06 12:35] LABS: Hemoglobin A1C 111.9405 umol/L; Total Hemoglobin (HGBA1C) 3539.4398 umol/L
[2025-09-06 12:54] LABS: Cholesterol 162 mg/dL (<200); HDL Cholesterol 46 mg/dL (>40); Magnesium 2.0 mg/dL (1.6-2.6); Triglycerides 128 mg/dL (<150)
[2025-09-06 13:10] LABS: Free T4 (Free Thyroxine) 0.93 ng/dL (0.71-1.85); Thyroid Stimulating Hormone 0.97 uIU/mL (0.32-4.0)
[2025-09-06 13:12] LABS: Folate 8.7 ng/mL (> or = 4.0); Vitamin B12 950 pg/mL (200-900)
[2025-09-06 20:35] VITALS: BP 111/66; PULSE 110; RESP 18; TEMP 36.8; O2SAT 97
--- NOTE | 2025-09-07 16:43 | PM.PSYDC ---
DS: Providers Provider Date of admission: 09/05/25 13:12 Primary care physician: Unknown Physician Consults: 09/05/25 16:36 Consult to Hospitalist Routine Comment: Consulting Provider[place] [facility] Reason For Exam: Admission Physical DS: Diagnosis Discharge Diagnosis (1) Adjustment reaction with mixed disturbance of emotions and conduct: Status: Acute DS: Medications Discharge Medications Home Medications: Home Medications ?Medication ?Instructions ?Recorded ?Confirmed fluoxetine 20 mg PO 1XD DEPRESSION 09/05/25 09/05/25 Previous Rx's ?Medication ?Instructions ?Recorded acetaminophen 325 mg tablet 650 mg (2 x 325 mg) PO Q6H PRN 09/07/25 Headache/Pain, Scale 1-10 #0 tabs fluoxetine 20 mg capsule 20 mg PO DAILY #30 caps 09/07/25 Data Data Completed and Pending Completed studies during hospitalization [Text1]: 09/06/25 12:18 Estimat Average Glucose 97 Hemoglobin A1c % 5.0 Magnesium 2.0 Triglycerides 128 Cholesterol 162 LDL Cholesterol, Calc 91 HDL Cholesterol 46 Vitamin B12 950 H Folate 8.7 TSH 0.97 Free T4 0.93 DS: Summary Time Spent with Patient Time attestation: Total time managing care of this patient today ____ minutes. Discharge Plan Discharge Anticipated Discharge Date/Time: 09/07/25 11:00 Patient Disposition: Home, Self-Care Discharge Diagnosis: Recurrent Major Depression Adjustment Disorder, Mixed Referrals: PCP with [facility] [Other] - 09/11/25 1:45 am Referral Note: Medication management. If this date does not work with your schedule please please contact them schedule a new appointment. Therapy with Gretchen Segura [Other] - 09/08/25 4:00 pm Referral Note: Kimi let social work know she has an appointment with Gretchen on Thursday. Social work is recommending weekly sessions. [facility] [place] [Other] - 09/13/25 8:00 am Referral Note: Located in the lot closest to parking lot C, behind the red [employer] trailer. Look for the red [employer] building with PHP signs. The intake is on Thursday and you will start the following day. Physician,Unknown J [Primary Care Provider, Medical] - 1 Week Discharge Medications: New acetaminophen 325 mg Tablet 650 mg PO Q6H PRN (Reason: Headache/Pain, Scale 1-10) Qty: 0 0RF fluoxetine 20 mg Capsule 20 mg PO DAILY Qty: 30 0RF Continued fluoxetine 20 MG capsule 20 mg PO 1XD Discharge Orders: Discharge Order (Routine); Ordered 09/07/25 Ordered By: Rosita Valente Diet: Advance to usual diet Activity on Discharge: As tolerated Stand Alone Forms: Patient Portal Discharge page Print Language: Occitan Care Plan Goals: Mood and Behavioral Stabilization Health Concerns: Mood and Behavioral Stabilization Plan of Treatment: Attend scheduled appointments Take medications as directed Call/Return as needed Assessment: No SI,HI,AH,VH. Will continue treatment with partial hospital and out pt therapy Discharge Date/Time: 09/07/25 11:30
== END 2025-09-07 11:30 | disposition home or self-care (01) | DRG 755 ==
PROVIDERS: Admitting Provider Psychiatry & Neurology Psychiatry; Visit Provider Clinical Nurse Specialist Psychiatric/Mental Health, Adult
DX: F43.25 Adjustment disorder with mixed disturbance of emotions and conduct (principal); Z60.8 Other problems related to social environment; Z91.51 Personal history of suicidal behavior; Z79.899 Other long term (current) drug therapy
CPT/HCPCS: 36415; 80061; 82607; 82746; 83036; 83735; 84439; 84443

== ENCOUNTER → 2025-09-05 13:12 | Outpatient (BNV) | payer BC, SELFPAY | PROVIDERS: Admitting Provider Psychiatry & Neurology Psychiatry; Visit Provider Nurse Practitioner Family | DX: F43.25 Adjustment disorder with mixed disturbance of emotions and conduct (principal) | CPT/HCPCS: 99252 ==

== ENCOUNTER → 2025-09-05 13:12 | Outpatient (BNV) | payer BC, SELFPAY | PROVIDERS: Admitting Provider Psychiatry & Neurology Psychiatry; Visit Provider Clinical Nurse Specialist Psychiatric/Mental Health, Adult | DX: F43.25 Adjustment disorder with mixed disturbance of emotions and conduct (principal) | CPT/HCPCS: 90792; 99232 ==

== ENCOUNTER 2025-09-11 09:39 | Outpatient (RCR) | payer BC, SELFPAY | END 2025-09-11 23:59 | disposition home or self-care (01) | LOC: HO.PHPA 09:39 | PROVIDERS: Visit Provider Psychiatry & Neurology Psychiatry | DX: F41.9 Anxiety disorder, unspecified (principal) ==